=== PATIENT | male | born 1960 ===

== ENCOUNTER 2017-08-08 22:26 | Inpatient (IN) | payer OTHER ==
[~2017-08-08] VITALS: Ht 172.7 cm; Wt 83.6 kg
[2017-08-08 22:58] VITALS: Ht 172.7 cm; Wt 83.6 kg
[2017-08-08] MEDS ORDERED: ATOR10TA65 PO (23:10)
[2017-08-08] MEDS ORDERED: ASPI81TA3 PO (23:10)
[2017-08-08 23:17] VITALS: PULSE 84
[2017-08-08] MEDS ORDERED: INSU100C SQ (23:17)
[2017-08-08] MEDS ORDERED: [UNRECOGNIZED DRUG - CODE] PO (23:17)
[2017-08-08] MEDS ORDERED: PROP20TA4 PO (23:17)
[2017-08-08] MEDS ORDERED: GABA300S PO (23:17)
[2017-08-08] MEDS ORDERED: LEVO300T PO (23:17)
[2017-08-08] MEDS ORDERED: SERT50TA6 PO (23:17)
[2017-08-08] MEDS ORDERED: NPH,100V SQ (23:17)
[2017-08-08] MEDS ORDERED: BENA5TAB2 PO (23:17)
[2017-08-09] VITALS (11 sets, daily range): BP systolic 133–155; BP diastolic 63–91; PULSE 84–95; RESP 16–20
[2017-08-09] MEDS ORDERED: ACCU-CHEK XX SCH
[2017-08-09] MEDS ORDERED: ONDANSETRON 4 MG TAB PO PRN (00:30)
[2017-08-09] MEDS ORDERED: NITROGLYCERIN (SL) 0.4 MG TAB SL PRN (00:30)
[2017-08-09] MEDS ORDERED: DOCUSATE SODIUM 100 MG CAP PO PRN (00:30)
[2017-08-09] MEDS: FAMOTIDINE 20 MG TAB PO SCH ×3 (00:30→21:42)
[2017-08-09] MEDS ORDERED: LORAZEPAM 0.5 MG TAB PO PRN (00:30)
[2017-08-09] MEDS ORDERED: GABAPENTIN 300 MG CAP PO ONE (00:30)
[2017-08-09] MEDS ORDERED: NACL 0.9% 3 ML SYG IV SCH (00:30)
[2017-08-09] MEDS ORDERED: ACETAMINOPHEN 325 MG TAB PO PRN (00:30)
[2017-08-09] MEDS ORDERED: INSULIN ASPART [NOVOLOG] 3 ML PEN SC ONE (03:34)
[2017-08-09] MEDS ORDERED: LEVOTHYROXINE SODIUM 25 MCG PO SCH (07:00)
--- NOTE | 2017-08-09 07:06 | PN ---
Date/Time of Note Date/Time of Note DATE: 08/09/17 TIME: 07:04 Assessment/Plan Lines/Catheters IV Catheter Type (from Nrs): Saline Lock Catalan in Place (from Nrsg): No Assessment/Plan Assessment/Plan full consult to follow 54 year old male admitted to [facility] with NSTEMI. Cath reviewed, he has 3V CAD and will need CABG. I discussed risks, benefits, and alternatives. Risks are but not limited to bleeding, infection, IA, renal and respiratory failure and . He understands and consents. Will schedule for tomorrow. Exam/Review of Systems Vital Signs Vitals Vital Signs Date Time Temp Pulse Resp B/P Pulse Ox O2 Delivery O2 Flow Rate FiO2 08/09/17 05:17 86 08/09/17 00:37 97.7 16 150/83 95 SHIRLEY CLEANING MD Aug 09, 2017 07:06
[2017-08-09] MEDS ORDERED: CEFAZOLIN 2 GM/50 ML (PMX) 50 ML IVPB ONE (07:30)
[2017-08-09] MEDS: LEVOTHYROXINE 25 MCG TAB PO SCH (07:30)
--- NOTE | 2017-08-09 07:47 | RADRPT ---
PROCEDURE: XR Chest. CLINICAL INDICATION: Preop TECHNIQUE: AP Portable chest. COMPARISON: No pertinent prior examinations were submitted for comparison. FINDINGS: The cardiomediastinal silhouette is normal. The aorta is normal. The lung volumes are low with compr essive changes. Left lower lobe reticular densities are visualized. No focal consolidation, pleural effusion or pneumothorax is seen. The osseous structures are intact. IMPRESSION: Low lung volumes. Left lower lobe interstitial infiltrate or atelectasis. Physician Loco Date Time Electronically viewed and signed by Physician Loco on 08/09/2017 07:47 CS/
[2017-08-09 08:22] LABS: BASOPHIL # 0.1 10^3/ul (0.0-0.1); BASOPHILS % 0.7 % (0.0-2.0); EOSINOPHILS # 0.1 10^3/ul (0.0-0.5); HEMATOCRIT 35.6 % (42.0-52.0); HEMOGLOBIN 12.4 g/dl (14.0-18.0); LYMPHOCYTES # 1.3 10^3/ul (0.8-2.9); LYMPHOCYTES % 19.3 % (15.0-51.0); MEAN CORPUSCULAR HEMOGLOBIN 30.2 pg (29.0-33.0); MEAN CORPUSCULAR HGB CONC 34.8 g/dl (32.0-37.0); MEAN CORPUSCULAR VOLUME 86.8 fl (82.0-101.0); MEAN PLATELET VOLUME 10.3 fl (7.4-10.4); MONOCYTE # 0.9 10^3/ul (0.3-0.9); MONOCYTES % 13.9 % (0.0-11.0); NEUTROPHIL # 4.3 10^3/ul (1.6-7.5); PLATELET COUNT 170 10^3/UL (140-415); RED CELL DISTRIBUTION WIDTH 11.6 % (11.5-14.5); WHITE BLOOD COUNT 6.7 10^3/ul (4.8-10.8)
[2017-08-09 08:37] LABS: INR 0.94; PROTIME 12.7 Sec (11.9-14.9)
[2017-08-09 08:38] LABS: PARTIAL THROMBOPLASTIN TIME 28.5 Sec (25.0-35.0)
[2017-08-09 08:59] LABS: ALBUMIN 3.3 g/dl (3.3-4.9); ALBUMIN/GLOBULIN RATIO 1.06; BILIRUBIN,INDIRECT 0.8 mg/dl (0-1.1); BILIRUBIN,TOTAL 0.8 mg/dl (0.2-1.3); CALCIUM 8.6 mg/dl (8.4-10.2); CREATININE 0.83 mg/dl (0.61-1.24); TOTAL PROTEIN 6.4 g/dl (6.1-8.1)
[2017-08-09] MEDS ORDERED: ENOXAPARIN 40 MG/0.4 ML SYG SC SCH (09:00)
[2017-08-09] MEDS: INSULIN ASPART [NOVOLOG] 3 ML PEN SC SCH ×6 (09:26→20:47)
[2017-08-09] MEDS ORDERED: GLUCOSE GEL 15 GRAM TUBE PO PRN ×2 (10:30)
[2017-08-09] MEDS ORDERED: GLUCAGON 1 MG INJ IM PRN (10:30)
[2017-08-09] MEDS ORDERED: DEXTROSE 50% 50 ML SYRINGE IV PRN (10:30)
[2017-08-09] MEDS ORDERED: GLUCOSE GEL 15 GRAM TUBE BUCCAL PRN (10:30)
[2017-08-09] MEDS: SERTRALINE 50 MG TAB PO SCH (11:00)
[2017-08-09] MEDS: PROPRANOLOL 20 MG TAB PO SCH (11:00)
[2017-08-09] MEDS: BENAZEPRIL 5 MG TAB PO SCH (11:00)
[2017-08-09] MEDS: ASPIRIN 81 MG TAB PO SCH (11:01)
[2017-08-09] MEDS ORDERED: INSULIN GLARGINE [LANtus] 3 ML PEN SC ONE (11:30)
--- NOTE | 2017-08-09 11:39 | HP ---
Date/Time of Note Date/Time of Note DATE: 08/09/17 TIME: 11:07 Assessment/Plan VTE Prophylaxis VTE Prophylaxis Intervention: SCD's Lines/Catheters IV Catheter Type (from [facility]): Saline Lock Urinary Cath still in place: No Assessment/Plan Assessment/Plan 57-year-old male with: 1. Coronary artery disease, multivessel, at least 3 with high-grade stenosis, status post NSTEMI at [facility] 2 days ago while in DKA. Patient is currently recovered from the DKA, he is hemodynamically stable, he has been evaluated by cardiothoracic surgery here at [facility] which is the reason why he was transferred from [facility], he will be scheduled for coronary artery bypass surgery in a.m. with Dr. Castellanos EKG and carotid Dopplers are pending. Chest x-ray is fairly stable. For now patient is agreeable with the procedure although he had many questions that all have been answered. Continue current medications, preop orders per Dr. Castellanos 2. Diabetes mellitus, insulin requiring, was previously on NPH and Humalog, status post DKA at [facility]'s 2 days ago, he is now on Lantus along with the pre-meal insulin and sliding scale insulin. Patient has been educated at large regarding his regimen, it may need some adjustments. chemical educator is consulted. Will monitor his blood sugars. He will need an insulin drip postoperatively after bypass surgery tomorrow for blood sugar control postoperatively and we will transition name back to subcutaneous insulin once stable. Check hemoglobin A1c 3. Major depressive disorder: Continue current medications 4. Hypertension: Patient on nichole inhibitors for renal protection in setting of diabetes mellitus primarily and also blood pressure control 5. Hyperlipidemia: Continue statin therapy, check fasting lipid panel 6. Hypothyroidism: Check thyroid function testing, continue levothyroxine. Prophylaxis: Lovenox for DVT prophylaxis, Pepcid for GI prophylaxis Disposition: Blood sugar control, telemetry monitoring, additional preop imaging ordered, plan for CABG tomorrow with Dr. Castellanos. HPI/ROS Admit Date/Time Admit Date/Time Aug 08, 2017 at 22:26 Hx of Present Illness Chief complaint: Transfer from [facility] for need for CABG History of presenting illness: This is a 57-year-old male with known major depressive disorder, diabetes mellitus insulin requiring, hyperlipidemia, hypertension who presented at [facility] on 08/06 in DKA, he was admitted to the intensive care unit there, he was treated for DKA, he was found to have also a NSTEMI, he did have angiogram within 24 hours of admission and was found to have multi-vessel disease, per report from [facility] hospitalist patient was found to have at least 90% occlusion of RCA, 80% of LAD, 80% occlusion of LAD, 90% occlusion of left circumflex and 10% occlusion of left main. The recommendation at [facility] was for coronary artery bypass surgery, patient was transferred to [facility] so that he is within insurance network and for continuity of care. Patient upon arrival here this morning was very upset regarding his insulin regimen apparently, he decided to leave AGAINST MEDICAL ADVICE and was actually about to walk out of the hospital but was caught by the nurse and myself, I talked to him at length and he agrees to stay, he was already seen by Dr. Castellanos from cardiothoracic surgery this morning and he is scheduling him for coronary artery bypass surgery tomorrow. After long discussion with the patient he is agreeable to stay and have the surgery done tomorrow. His insulin regimen has been adjusted per [facility] protocol. He agrees with going on Lantus along with pre-meal insulin and sliding scale insulin adjusted to his weight. We will have a music educator talk to him. He understands that post coronary artery bypass surgery most likely he is going to require insulin drip while recovering in the intensive care unit and will be transitioned back to subcutaneous insulin afterwards and he is agreeable. Patient denies any chest pain, nausea, vomiting, dizziness, shortness of breath , lower extremity edema. Currently. He feels well. 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 Alcohol Use: none Smoking Status: Former smoker (Patient was smoking for approximately 35 years, 1 pack a day and quit 2 years ago) Drug Use: none Exam/Review of Systems Vital Signs Vitals Vital Signs Date Time Temp Pulse Resp B/P Pulse Ox O2 Delivery O2 Flow Rate FiO2 08/09/17 08:00 85 08/09/17 08:00 97.8 19 133/63 100 Exam Constitutional: alert, oriented, well developed Respiratory: clear to auscultation, normal air movement Cardiovascular: nl pulses, regular rate and rhythm Gastrointestinal: non-tender, soft Musculoskeletal: nl extremities to inspection, nl gait and stance Extremities: normal pulses Neurological: LAB ASSOCIATE II-XII intact, nl mental status, nl speech, nl strength Labs Result Diagram: 08/09/17 0756 08/09/17 0756 Medications Medications Current Medications Influenza Virus Vaccine (Fluzone) 0.5 ml ONCE ONCE IM* ; Start 08/11/17 at 09: 00; Stop 08/11/17 at 09:01 Lorazepam (Ativan) 0.5 mg Q8H PRN PO ANXIETY; Start 08/09/17 at 00:30 Ondansetron HCl (Zofran Tab) 4 mg Q6H PRN PO NAUSEA AND/OR VOMITING; Start at 00:30 Nitroglycerin (Nitroglycerin (Sl Tab) 0.4 Mg) 1 tab Q5M PRN SL CHEST PAIN; Start 08/09/17 at 00:30 Acetaminophen (Tylenol Tab) 650 mg Q6H PRN PO PAIN LEVEL 1-3 OR FEVER; Start 08/09/17 at 00:30 Acetaminophen/ Hydrocodone Bitart ([place] (5/325)) 1 tab Q6H PRN PO PAIN LEVEL 4 -6; Start 08/09/17 at 00:30 Docusate Sodium (Colace) 100 mg Q12H PRN PO CONSTIPATION; Start 08/09/17 at 00 :30 Famotidine (Pepcid) 20 mg Q12 PO ; Start 08/09/17 at 00:30 Enoxaparin Sodium (Lovenox) 40 mg DAILY SC ; Start 08/09/17 at 09:00; Status Future Hold Aspirin (Aspirin) 81 mg DAILY PO ; Start 08/09/17 at 09:00 Atorvastatin Calcium (Lipitor) 20 mg QHS PO ; Start 08/09/17 at 21:00 Benazepril HCl (Lotensin) 2.5 mg DAILY PO ; Start 08/09/17 at 09:00 Propranolol HCl (Inderal) 20 mg DAILY PO ; Start 08/09/17 at 09:00 Sertraline HCl 50 mg 50 mg DAILY PO ; Start 08/09/17 at 09:00 Cefazolin Sodium/ Dextrose (Ancef 2 Gm/50 ml (Pmx)) 50 ml @ 100 mls/hr PRE-OP ONCE IVPB ; Start 08/10/17 at 07:00; Stop 08/10/17 at 07:29 Levothyroxine Sodium (Synthroid) 25 mcg DAILY@06 PO ; Start 08/09/17 at 07:30 Diagnostic Test (Pha) 1 ea 1 ea 02 XX ; Start 08/10/17 at 02:00 Insulin Human Regular 100 unit/ Sodium Chloride 100 ml @ 0 mls/hr Q0M ONCE IVPB ; Start 08/10/17 at 07:00; Stop 08/10/17 at 07:01 Norepinephrine 250 ml @ 0 mls/hr ONCE ONCE IV ; Start 08/10/17 at 07:00; Stop 08/10/17 at 07:01 Epinephrine 4 mg/ Dextrose 250 ml @ 0 mls/hr Q0M ONCE IV ; Start 08/10/17 at 07 :00; Stop 08/10/17 at 07:01 Phenylephrine HCl (Elliot-Syneph) 250 ml @ 0 mls/hr ONCE ONCE IV ; Start at 07:00; Stop 08/10/17 at 07:01 Aspirin 600 mg 600 mg ONCE ONCE PA ; Start 08/10/17 at 07:00; Stop 08/10/17 at 07:01 Heparin Sodium (Porcine) 97774 unit/Milrinone Lactate 10 mg/ Sodium Chloride 1, 011 ml @ 0 mls/hr ONCE ONCE SC ; Start 08/10/17 at 07:00; Stop 08/10/17 at 07:01 Milrinone Lactate/ Sodium Chloride (Primacor/NS) 52 ml @ 0 mls/hr ONCE ONCE IV ; Start 08/10/17 at 07:00; Stop 08/10/17 at 07:01 Insulin Glargine (Lantus) 25 unit DAILY@08 SC ; Start 08/10/17 at 08:00 Miscellaneous Information 1 ea NOTE XX ; Start 08/09/17 at 10:30 Glucose (Glutose) 15 gm Q15M PRN PO DECREASED GLUCOSE; Start 08/09/17 at 10:30 Glucose (Glutose) 22.5 gm Q15M PRN PO DECREASED GLUCOSE; Start 08/09/17 at 10: 30 Dextrose (D50w Syringe) 25 ml Q15M PRN IV DECREASED GLUCOSE; Start 08/09/17 at 10:30 Dextrose (D50w Syringe) 50 ml Q15M PRN IV DECREASED GLUCOSE; Start 08/09/17 at 10:30 Glucagon (Glucagen) 1 mg Q15M PRN IM DECREASED GLUCOSE; Start 08/09/17 at 10: 30 Glucose (Glutose) 15 gm Q15M PRN BUCCAL DECREASED GLUCOSE; Start 08/09/17 at 10:30 Procedures Procedures PROCEDURE: XR Chest. CLINICAL INDICATION: Preop TECHNIQUE: AP Portable chest. COMPARISON: No pertinent prior examinations were submitted for comparison. FINDINGS: The cardiomediastinal silhouette is normal. The aorta is normal. The lung volumes are low with compressive changes. Left lower lobe reticular densities are visualized. No focal consolidation, pleural effusion or pneumothorax is seen. The osseous structures are intact. IMPRESSION: Low lung volumes. Left lower lobe interstitial infiltrate or atelectasis. Carotid Doppler ultrasound pending, Preop EKG pending, patient already known to have recent and STEMI and coronary artery disease and actually going to bypass surgery tomorrow. ROBERT MULLEN Aug 09, 2017 11:17
[2017-08-09 11:48] LABS: CHOL/HDL RATIO 3.3 RATIO
[2017-08-09] MEDS ORDERED: INSULIN ASPART [NOVOLOG] 3 ML PEN SC SCH (11:50)
--- NOTE | 2017-08-09 14:22 | RADRPT ---
PROCEDURE: US Carotids. CLINICAL INDICATION: Syncope. Preoperative exam for CABG TECHNIQUE: Multiple sonographic of the carotid bifurcation region and vertebral arteries were obta ined utilizing yuan scale, duplex and color-flow imaging. The images were reviewed on a PACS worksta tion. COMPARISON: No prior studies are available for comparison. FINDINGS: Evaluation of the right carotid bifurcation region reveals mild to moderate calcific atherosclerotic disease. Evaluation of the left carotid bifurcation region reveals mild to moderate calcific atherosclerotic disease. There is antegrade flow within the vertebral arteries bilaterally. RIGHT CAROTID MEASUREMENTS: Common Carotid Zmphao64.5 (cm/sec) Internal Carotid Artery - [id number] (cm/sec) Internal Carotid Artery - mid77.9 (cm/sec) Internal Carotid Artery - vptsum78.5 (cm/sec) Internal Carotid/Common Carotid0.9 LEFT CAROTID MEASUREMENTS: Common Carotid Zsskpd03.1 (cm/sec) Internal Carotid Artery - lwbsewvy55.9 (cm/sec) Internal Carotid Artery - mid50 (cm/sec) Internal Carotid Artery - hrhfuf88.4 (cm/sec) Internal Carotid/Common Carotid0.8 IMPRESSION: 1. No evidence for hemodynamically significant carotid artery stenosis by velocity criteria. 2. Normal antegrade flow in the vertebral arteries bilaterally. RPTAT: HPNM Physician Margaux Date Time Electronically viewed and signed by Physician Margaux on 08/09/2017 14:22 /
[2017-08-09] MEDS ORDERED: INSULIN GLARGINE [LANtus] 3 ML PEN SC SCH (20:00)
[2017-08-09] MEDS: ATORVASTATIN 10 MG TAB PO SCH (21:20)
[2017-08-10] VITALS (44 sets, daily range): BP systolic 83–152; BP diastolic 21–90; PULSE 77–112; RESP 9–21; TEMP 98.3–99.6
[2017-08-10] MEDS: ACCU-CHEK XX SCH (02:00)
[2017-08-10] MEDS: LEVOTHYROXINE 25 MCG TAB PO SCH (05:26)
[2017-08-10] MEDS ORDERED: GELATIN SIZE 100 SPONGE ONE (06:14)
[2017-08-10] MEDS ORDERED: THROMBIN 5000 UNIT VIAL ONE (06:14)
[2017-08-10] MEDS ORDERED: VANCOMYCIN 1 GM INJ ONE (06:14)
[2017-08-10] MEDS ORDERED: PAPAVERINE 60 MG INJ ONE (06:14)
[2017-08-10] MEDS ORDERED: HEPARIN 1000 UNITS/ML 10 ML INJ ONE ×5 (06:15→12:49)
[2017-08-10 06:43] LABS: BASOPHIL # 0.1 10^3/ul (0.0-0.1); BASOPHILS % 0.9 % (0.0-2.0); EOSINOPHILS # 0.1 10^3/ul (0.0-0.5); EOSINOPHILS % 1.4 % (0.0-7.0); HEMOGLOBIN 12.9 g/dl (14.0-18.0); LYMPHOCYTES # 1.7 10^3/ul (0.8-2.9); LYMPHOCYTES % 24.8 % (15.0-51.0); MEAN CORPUSCULAR HEMOGLOBIN 30.4 pg (29.0-33.0); MEAN CORPUSCULAR HGB CONC 34.9 g/dl (32.0-37.0); MEAN CORPUSCULAR VOLUME 87.1 fl (82.0-101.0); MEAN PLATELET VOLUME 10.3 fl (7.4-10.4); NEUTROPHILS % 57.6 % (39.0-77.0); PLATELET COUNT 181 10^3/UL (140-415); RED BLOOD COUNT 4.25 10^6/ul (4.70-6.10); RED CELL DISTRIBUTION WIDTH 11.6 % (11.5-14.5); WHITE BLOOD COUNT 6.9 10^3/ul (4.8-10.8)
[2017-08-10] MEDS ORDERED: ASPIRIN 600 MG SUPP PR ONE (07:00)
[2017-08-10] MEDS ORDERED: HEPARIN (10000 UNITS/ML) 10,000 UNIT, MILRINONE LACTATE 10 MG in SOD CHLORIDE 0.9% 1,00... SC ONE (07:00)
[2017-08-10] MEDS ORDERED: CEFAZOLIN 2 GM/50 ML (PMX) 50 ML IVPB ONE (07:00)
[2017-08-10] MEDS ORDERED: MILRINONE LACTATE 2 MG in SOD CHLORIDE 0.9% 50 ML IV ONE (07:00)
[2017-08-10] MEDS ORDERED: NITROGLYCERIN 50 MG/D5W 250 ML BTL ONE (07:00)
[2017-08-10] MEDS ORDERED: PHENYLephrine 20MG IN 250 ML 250 ML IV ONE (07:00)
[2017-08-10] MEDS ORDERED: INSULIN HUMAN REGULAR 100 UNIT in SOD CHLORIDE 0.9% 99 ML IVPB ONE (07:00)
[2017-08-10] MEDS ORDERED: NORepinephrine 8MG/250 ML (PMX 250 ML IV ONE (07:00)
[2017-08-10] MEDS ORDERED: EPINEPHrine 4 MG in DEXTROSE 5% 246 ML IV ONE (07:00)
[2017-08-10 07:03] LABS: MAGNESIUM 1.7 mg/dl (1.7-2.5); PHOSPHORUS 4.1 mg/dl (2.5-4.9)
[2017-08-10 07:20] LABS: ALBUMIN 3.6 g/dl (3.3-4.9); ALBUMIN/GLOBULIN RATIO 1.05; BILIRUBIN,INDIRECT 0.7 mg/dl (0-1.1); BILIRUBIN,TOTAL 0.7 mg/dl (0.2-1.3); CALCIUM 9.1 mg/dl (8.4-10.2); CREATININE 0.94 mg/dl (0.61-1.24); POTASSIUM 4.2 mmol/L (3.5-5.1)
[2017-08-10] MEDS: INSULIN ASPART [NOVOLOG] 3 ML PEN SC SCH ×6 (07:55→20:54)
[2017-08-10] MEDS: BENAZEPRIL 5 MG TAB PO SCH (09:00)
[2017-08-10] MEDS: SERTRALINE 50 MG TAB PO SCH (09:00)
[2017-08-10] MEDS: FAMOTIDINE 20 MG TAB PO SCH (09:00)
[2017-08-10] MEDS: PROPRANOLOL 20 MG TAB PO SCH (09:00)
[2017-08-10] MEDS: ASPIRIN 81 MG TAB PO SCH (09:00)
[2017-08-10] MEDS: INSULIN GLARGINE [LANtus] 3 ML PEN SC SCH (09:06)
--- NOTE | 2017-08-10 09:59 | HPN ---
Date/Time of Note Date/Time of Note DATE: 08/10/17 TIME: 09:59 Interval H&P Admission Note Pt. seen H&P reviewed: No system changes SHIRLEY CLEANING MD Aug 10, 2017 09:59
--- NOTE | 2017-08-10 10:11 | CONS ---
Date/Time of Note Date/Time of Note DATE: 08/10/17 TIME: 10:07 Assessment/Plan Assessment/Plan Additional Assessment/Plan 54 year old male with 3 vessel CAD. I explained the benefits, risks and alternatives of surgery. The risks are but not limited to bleeding, infection, stroke, [place], renal and respiratory failure and . He understands and consents. Will plan on CABG soon Consultation Date/Type/Reason Admit Date/Time Aug 08, 2017 at 22:26 Date of Consultation: Aug 09, 2017 Reason for Consultation evaluate for CABG Hx of Present Illness 54 year old male admitted to [facility] with NSTEMI and cath showed severe 3V CAD. He was transferred here for CABG. Constitutional: No chills, No diaphoresis, No disoriented, No febrile, No improved, No no complaints, No other, No poor po, No requiring IVF, No requiring O2 Eyes: No discharge, No no complaints, No other, No pain, No redness, No visual change ENT: No bleeding, No congestion, No discharge, No dysphagia, No no complaints, No other, No pain, No sore throat Respiratory: No cough, No no complaints, No other, No pain, No pleuritic pain, No shortness of breath, No sputum, No wheezing Cardiovascular: chest pain Gastrointestinal: No blood, No constipation, No decreased appetite, No diarrhea , No flatus, No nausea, No no complaints, No other, No pain, No passing stool, No vomiting Genitourinary: No bleeding, No discharge, No dysuria, No flank pain, No hematuria, No no complaints, No other Musculoskeletal: No back pain, No bone/joint pain, No neck pain, No no complaints, No other, No restricted range of motion, No swelling Skin: No bruising, No erythema, No laceration, No no complaints, No other, No pruritis, No rash, No skin lesions Neurologic: No confusion, No dizziness, No focal-weakness, No headache, No no complaints, No other, No seizure, No syncope Endocrine: No dry skin, No no complaints, No other, No polydypsia, No polyuria , No temp intolerance Lymphatic: No adenopathy, No lymphadema, No no complaints, No other, No tender nodes Psychological: No anxiety, No confusion, No depression, No nl mood/affect, No no complaints, No other, No suicidal Immunologic: No immunodeficiency, No no complaints, No other, No pruritis, No rhinitis, No urticaria Past Medical History Medical History: angina, coronary artery disease, diabetes, high cholesterol Past Surgical History Past Surgical Hx: no surgical history Family History Significant Family History: no pertinent family hx Social History Alcohol Use: none Smoking Status: Former smoker (Patient was smoking for approximately 35 years, 1 pack a day and quit 2 years ago) Drug Use: none Exam/Review of Systems Vital Signs Vitals Vital Signs Date Time Temp Pulse Resp B/P Pulse Ox O2 Delivery O2 Flow Rate FiO2 08/10/17 08:10 84 08/10/17 07:56 98.8 16 134/72 99 Intake and Output 08/09/17 08/09/17 08/10/17 15:00 23:00 07:00 Intake Total 800 ml Balance 800 ml Exam Constitutional: No alert, No distress, No frail, No non-verbal, No obese, No oriented, No other, No well developed Psych: No anxiety, No confusion, No depression, No nl mood/affect, No no complaints, No other, No suicidal Head: No atraumatic, No hematomas, No lacerations, No normocephalic, No other Eyes: No EOMI, No PERRL, No fundi, disc, No icteric, No nl conjunctiva, No nl lids, No nl sclera, No other ENMT: No intubated, No mucosa pink and moist, No nl external ears & nose, No nl lips & teeth, No nl nasal mucosa & septum, No other, No tympanic membranes Neck: No bruits, No jvd, No masses, No non-tender, No nuchal rigidity, No other , No supple, No thyromegaly Respiratory: No clear to auscultation, No congested cough, No crackles/rales, No diminished breath sounds, No intercostal retraction, No labored breathing, No normal air movement, No other, No respirations, No tactile fremitus, No wheezing Cardiovascular: No S3, No S4, No bruits, No diastolic murmur, No edema, No gallop, No irregular rhythm, No jugular venous distention (JVD), No murmurs/ extra sounds, No nl pulses, No other, No regular rate and rhythm, No rub, No systolic murmur Gastrointestinal: No ascites, No bowel sounds, No distended, No firm, No hepatomegaly, No mass, No nl liver, spleen, No non-tender, No other, No rebound or guarding, No soft, No splenomegaly, No surgical scars, No tender Genitourinary - Male: No CVA tenderness, No discharge, No nl penis, No nl scrotum, No other Musculoskeletal: No joint tenderness, No muscle tone, No muscle weakness, No nl extremities to inspection, No nl gait and stance, No other, No range of motion, No spine non-tender, No swelling Extremities: No calf tenderness, No clubbing, No cyanosis, No edema, No normal pulses, No other, No palpable cord, No pitting pedal edema, No tenderness Neurological: No SOLUTION MANAGER II-XII intact, No DTR's symmetric, No confused, No focal weakness, No lethargic, No nl mental status, No nl speech, No nl strength, No numbness, No other, No reflexes, No unresponsive Skin: No diaphoresis, No ecchymosis, No laceration, No nl turgor, No other, No puncture, No rash or lesions Lymph: No enlarged, No nl lymph nodes, No nontender, No other Results Result Diagram: 08/10/17 0623 08/10/17 0623 Results 24 hrs Laboratory Tests Test 08/09/17 12:36 08/09/17 13:12 08/09/17 18:00 08/09/17 18:45 Bedside Glucose 260 H 232 H 66 L 111 Test 08/09/17 20:47 08/10/17 04:34 08/10/17 06:23 08/10/17 08:05 Bedside Glucose 124 120 195 White Blood Count 6.9 Red Blood Count 4.25 L Hemoglobin 12.9 L Hematocrit 37.0 L Mean Corpuscular Volume 87.1 Mean Corpuscular Hemoglobin 30.4 Mean Corpuscular Hemoglobin Concent 34.9 Red Cell Distribution Width 11.6 Platelet Count 181 Mean Platelet Volume 10.3 Neutrophils % 57.6 Lymphocytes % 24.8 Monocytes % 15.0 H Eosinophils % 1.4 Basophils % 0.9 Nucleated Red Blood Cells % 0.0 Neutrophils # 4.0 Lymphocytes # 1.7 Monocytes # 1.0 H Eosinophils # 0.1 Basophils # 0.1 Nucleated Red Blood Cells # 0.0 Sodium Level 141 Potassium Level 4.2 Chloride Level 103 Carbon Dioxide Level 28 Anion Gap 14 Blood Urea Nitrogen 18 Creatinine 0.94 Glucose Level 154 # Calcium Level 9.1 Phosphorus Level 4.1 Magnesium Level 1.7 Total Bilirubin 0.7 Direct Bilirubin 0.00 Indirect Bilirubin 0.7 Aspartate Amino Transf (AST/SGOT) 48 #H Alanine Aminotransferase (ALT/SGPT) 42 Alkaline Phosphatase 63 Total Protein 7.0 Albumin 3.6 Globulin 3.40 H Albumin/Globulin Ratio 1.05 Test 08/10/17 08:27 08/10/17 09:40 Bedside Glucose 185 217 Medications Medications Current Medications Influenza Virus Vaccine (Fluzone) 0.5 ml ONCE ONCE IM* ; Start 08/11/17 at 09: 00; Stop 08/11/17 at 09:01 Lorazepam (Ativan) 0.5 mg Q8H PRN PO ANXIETY; Start 08/09/17 at 00:30 Ondansetron HCl (Zofran Tab) 4 mg Q6H PRN PO NAUSEA AND/OR VOMITING; Start at 00:30 Nitroglycerin (Nitroglycerin (Sl Tab) 0.4 Mg) 1 tab Q5M PRN SL CHEST PAIN; Start 08/09/17 at 00:30 Acetaminophen (Tylenol Tab) 650 mg Q6H PRN PO PAIN LEVEL 1-3 OR FEVER; Start 08/09/17 at 00:30 Acetaminophen/ Hydrocodone Bitart ([place] (5/325)) 1 tab Q6H PRN PO PAIN LEVEL 4 -6; Start 08/09/17 at 00:30 Docusate Sodium (Colace) 100 mg Q12H PRN PO CONSTIPATION; Start 08/09/17 at 00 :30 Famotidine (Pepcid) 20 mg Q12 PO Last administered on 08/09/17 21:42; Admin Dose 20 MG; Start 08/09/17 at 00:30 Enoxaparin Sodium (Lovenox) 40 mg DAILY SC Last administered on 08/09/17 11: 26; Admin Dose 40 MG; Start 08/09/17 at 09:00; Status Future Hold Aspirin (Aspirin) 81 mg DAILY PO Last administered on 08/09/17 11:01; Admin Dose 81 MG; Start 08/09/17 at 09:00 Atorvastatin Calcium (Lipitor) 20 mg QHS PO Last administered on 08/09/17 21: 20; Admin Dose 20 MG; Start 08/09/17 at 21:00 Benazepril HCl (Lotensin) 2.5 mg DAILY PO Last administered on 08/09/17 11:00 ; Admin Dose 2.5 MG; Start 08/09/17 at 09:00 Propranolol HCl (Inderal) 20 mg DAILY PO Last administered on 08/09/17 11:00 ; Admin Dose 20 MG; Start 08/09/17 at 09:00 Sertraline HCl (Zoloft) 50 mg DAILY PO Last administered on 08/09/17 11:00; Admin Dose 50 MG; Start 08/09/17 at 09:00 Levothyroxine Sodium (Synthroid) 25 mcg DAILY@06 PO ; Start 08/09/17 at 07:30 Diagnostic Test (Pha) (Accu-Chek) 1 ea 02 XX ; Start 08/10/17 at 02:00 Insulin Glargine (Lantus) 25 unit DAILY@08 SC ; Start 08/10/17 at 08:00 Miscellaneous Information 1 ea NOTE XX ; Start 08/09/17 at 10:30 Glucose (Glutose) 15 gm Q15M PRN PO DECREASED GLUCOSE; Start 08/09/17 at 10:30 Glucose (Glutose) 22.5 gm Q15M PRN PO DECREASED GLUCOSE; Start 08/09/17 at 10: 30 Dextrose (D50w Syringe) 25 ml Q15M PRN IV DECREASED GLUCOSE; Start 08/09/17 at 10:30 Dextrose (D50w Syringe) 50 ml Q15M PRN IV DECREASED GLUCOSE; Start 08/09/17 at 10:30 Glucagon (Glucagen) 1 mg Q15M PRN IM DECREASED GLUCOSE; Start 08/09/17 at 10: 30 Glucose (Glutose) 15 gm Q15M PRN BUCCAL DECREASED GLUCOSE; Start 08/09/17 at 10:30 SHIRLEY CLEANING MD Aug 10, 2017 10:11
[2017-08-10] MEDS ORDERED: PAPAVERINE 60 MG INJ IRR ONE (10:35)
[2017-08-10] MEDS ORDERED: VANCOMYCIN 500MG INJ IMPLANTED ONE (10:35)
[2017-08-10] MEDS ORDERED: HEPARIN 1000 UNITS/ML 10 ML INJ IRR ONE (10:35)
[2017-08-10] MEDS ORDERED: MIDAZOLAM 5 ML ONE ×2 (10:39→12:02)
[2017-08-10] MEDS ORDERED: PHENYLephrine 10 MG INJ ONE (10:40)
[2017-08-10] MEDS ORDERED: NA BICARBONATE 8.4% 50 ML SYG ONE (10:40)
[2017-08-10] MEDS ORDERED: LIDOCAINE 100 MG SYRINGE ONE (10:41)
[2017-08-10] MEDS ORDERED: MAGNESIUM SULFATE (MG) 50% 10 ML INJ ONE (10:41)
[2017-08-10] MEDS ORDERED: POTASSIUM CHLORIDE 40 MEQ INJ ONE (10:41)
[2017-08-10] MEDS ORDERED: MANNITOL 20% 250 ML IV ONE (10:42)
[2017-08-10] MEDS ORDERED: PHENYLephrine (100 MCG/ML) 5ML SYG ONE (10:42)
[2017-08-10] MEDS ORDERED: ALBUMIN HUMAN 25% 300 ML ONE (10:42)
[2017-08-10] MEDS ORDERED: AMINOCAPROIC ACID 5 GM INJ ONE ×2 (11:37→13:14)
[2017-08-10] MEDS ORDERED: CEFAZOLIN 1 GM INJ ONE ×2 (11:37→13:14)
[2017-08-10] MEDS ORDERED: CA CHLORIDE 10% 10 ML SYRINGE ONE (13:14)
[2017-08-10] MEDS ORDERED: PROTAMINE 250 MG INJ ONE (13:18)
--- NOTE | 2017-08-10 14:03 | SIPON ---
Date/Time of Note Date/Time of Note DATE: 08/10/17 TIME: 14:00 Operative Report Preoperative Diagnosis NSTEMI, 3V CAD Postoperative Diagnosis SAME Operation/Procedure Performed CABGX3 OSORIO TO LAD, SVG TO DIAG, SVG TO DISTAL RCA Surgeon see signature line financial planning assistant EDUARDO MCWILLIAMS MD Second assist: MARYSOL MUIR Anesthesia: general Estimated blood loss: other Transfusion Required none Specimen NONE Grafts/Implants none Complications none SHIRLEY CLEANING MD Aug 10, 2017 14:03
[2017-08-10] MEDS ORDERED: ETOMIDATE 20 MG INJ ONE (14:10)
[2017-08-10] MEDS ORDERED: LIDOCAINE 2% (SDV) 5 ML INJ ONE (14:10)
[2017-08-10] MEDS ORDERED: ROCURONIUM 50 MG INJ ONE ×3 (14:10)
--- NOTE | 2017-08-10 14:23 | RADRPT ---
PROCEDURE: XR Chest. CLINICAL INDICATION: Postop CABG TECHNIQUE: Single frontal chest x-ray. COMPARISON: None. FINDINGS: Note that there is anomalous labeling in which the left label is overlying the right shoulder. An endotracheal tube is visualized which is about 5.4 cm above the altagracia. Median sternotomy wires a re also present. There is a right internal jugular Arma-Dallas catheter with the tip in the region of the left pulmonary outflow tract. The mediastinal drain is also visualized. The lungs are adequately expanded with perihilar predominant interstitial thickening with indistinct ness of the pulmonary vasculature in keeping with moderate edema, more prominent on the right. There is right basilar atelectasis/scarring. The heart is mildly prominent. Mediastinal contours are unre markable. Bones are unremarkable. No acute fractures are present. RPTAT: QQ IMPRESSION: 1. Tubes and lines as described above. No anomalous radiopaque foreign bodies within the chest. 2. Mild to moderate pulmonary edema with cardiomegaly. 3. Right basilar atelectasis/scarring. Results were discussed with the nurse taking care of the patient in the OR at extension [id number] on 07/26 2:21:43 PM. .Nicole Beasley MD, MD Date Time Electronically viewed and signed by .Nicole Beasley MD, on 08/10/2017 14:23 .T/
[2017-08-10] MEDS ORDERED: DEXTROSE 50% 50 ML SYRINGE IV PRN ×2 (14:30)
[2017-08-10] MEDS ORDERED: ACCU-CHEK XX SCH (14:30)
[2017-08-10] MEDS ORDERED: OXYCODONE/ACETAMINOPHEN (5/325) TAB PO PRN (14:30)
[2017-08-10] MEDS ORDERED: ONDANSETRON 4 MG INJ IV PRN (14:30)
[2017-08-10] MEDS ORDERED: NITROGLYCERIN 50 MG/D5W (PMX) 250 ML IV SCH ×2 (14:30→15:00)
[2017-08-10] MEDS ORDERED: ACETAMINOPHEN 325 MG TAB PO PRN (14:30)
[2017-08-10] MEDS ORDERED: DOPamine-D5W 1.6 MG/ML 250 ML IV SCH (14:30)
[2017-08-10] MEDS ORDERED: KETOROLAC 30 MG INJ IV PRN (14:30)
[2017-08-10] MEDS ORDERED: HYDROmorphONE 0.5 MG/0.5 ML SYG IV PRN (14:30)
[2017-08-10] MEDS ORDERED: PHENYLephrine 20MG IN 250 ML 250 ML IV SCH (15:00)
[2017-08-10] MEDS ORDERED: POTASSIUM CHLORIDE 40 MEQ, CALCIUM CHLORIDE 10% 1 GM in DEXTROSE 5%-0.225% NACL 1,000 ML IV SCH (15:00)
[2017-08-10] MEDS: INSULIN HUMAN REGULAR 100 UNIT in SOD CHLORIDE 0.9% 99 ML IV SCH ×2 (15:01→22:23)
[2017-08-10 15:15] LABS: ABNORMAL IP MESSAGE 1; MEAN CORPUSCULAR HEMOGLOBIN 30.2 pg (29.0-33.0); MEAN CORPUSCULAR HGB CONC 34.5 g/dl (32.0-37.0); MEAN CORPUSCULAR VOLUME 87.6 fl (82.0-101.0); MEAN PLATELET VOLUME 10.2 fl (7.4-10.4); PLATELET COUNT 97 10^3/UL (140-415); POSITIVE DIFF @See below; RED BLOOD COUNT 3.31 10^6/ul (4.70-6.10); RED CELL DISTRIBUTION WIDTH 11.5 % (11.5-14.5); WHITE BLOOD COUNT 8.4 10^3/ul (4.8-10.8)
[2017-08-10 15:28] LABS: INR 1.25; PROTIME 15.9 Sec (11.9-14.9); PT RATIO 1.2
[2017-08-10 15:29] LABS: PARTIAL THROMBOPLASTIN TIME 31.8 Sec (25.0-35.0)
[2017-08-10] MEDS: HYDROmorphONE 0.5 MG/0.5 ML SYG IV PRN ×3 (15:29→21:08)
[2017-08-10 15:31] LABS: CALCIUM 8.3 mg/dl (8.4-10.2); CREATININE 0.91 mg/dl (0.61-1.24); POTASSIUM 3.4 mmol/L (3.5-5.1)
[2017-08-10] MEDS ORDERED: PROPOFOL 100 ML ONE (15:34)
[2017-08-10 16:00] LABS: AADO2 Arterial 228.9 mmHg (7.0-24.0); Arterial Base Excess -3.8 mmol/L (-3.0-3); Arterial COHb 0.3 % (0.0-3.0); Arterial Fraction of Oxyhgb 97.9 % (93.0-99.0); Arterial HCO3 22.3 mmol/L (22.0-26.0); Arterial MetHb 0 % (0.0-1.5); Arterial Total Hemglobin 11.9 g/dl (12.0-18.0); MODE VENT - AC
[2017-08-10 16:05] LABS: EOSINOPHILS % (M) 2 % (0-7); PLATELET ESTIMATE DECREASED
[2017-08-10] MEDS: PROPOFOL 100 ML IV SCH (16:12)
[2017-08-10] MEDS: DEXTROSE 50% 50 ML SYRINGE IV PRN ×2 (16:47→18:04)
[2017-08-10] MEDS: POTASSIUM CHLORIDE 50 ML IVPB PRN ×3 (17:02→19:20)
[2017-08-10] MEDS: CEFAZOLIN 1 GM/50 ML (PMX) 50 ML IVPB SCH ×2 (17:47→22:08)
--- NOTE | 2017-08-10 18:44 | OPR ---
DATE OF OPERATION: 08/10/2017 PREOPERATIVE DIAGNOSIS: [id number] myocardial infarction, 3-vessel coronary artery disease. POSTOPERATIVE DIAGNOSIS: Nuo-[id number] myocardial infarction, 3-vessel coronary artery disease. PROCEDURE: CABG x3, OSORIO to LAD, SVG to distal right coronary artery, SVG to diagonal artery. SURGEON: Shirley Castellanos MD HOUSE DETECTIVE: Cameron Mcwilliams MD SECOND RETAIL TEAM MEMBER: Janelle CACERES ANESTHESIOLOGIST: Dr. John. ANESTHESIA: General endotracheal. COMPLICATIONS: None. FINDINGS: LV function was good pre- and post-revascularization. His LAD was a 2 mm vessel and had a flow of 26 mL per minute. His RCA was a 2.5 mm vessel and had a flow of 132 mL per minute. His d iagonal artery was a 1.75 mm vessel and had a flow of 60 mL per minute. Cardiopulmonary bypass time was 55 minutes. Crossclamp time was 35 minutes. No atheromas or plaques were noted in the ascendi ng aorta. PROCEDURE PERFORMED: CABG x3, OSORIO to LAD, SVG to distal right coronary artery, SVG to diagonal art kris and endoscopic vein harvesting. INDICATION: The patient is a 57-year-old gentleman who was admitted to [facility] with a non-STEMI. He was cath'd there and was found to have 3-vessel coronary artery disease. He was tra nsferred for insurance reasons to [facility], where he was referred for CABG. The benefits, risks, and alternatives were explained to the patient who understood and consented. DESCRIPTION OF PROCEDURE: Patient was brought to the operating room, was placed in supine position. He was induced and underwent general endotracheal intubation without complications. He was preppe d and draped in usual sterile fashion. Median sternotomy was made and simultaneous endoscopic vein harvesting of the greater saphenous vein from the right lower extremity. Heparin was given. OSORIO w as taken down using clips and cautery. Pericardial well was established. Pursestring was placed in the ascending aorta, followed by the right atrium. The ascending aorta was cannulated, followed by 2-stage venous cannula in the right atrium. We placed an ascending aortic vent. Once all our line s were in place and the ACT was adequate, we commenced cardiopulmonary bypass. We arrested the hear t using antegrade cardioplegia and topical ice. Once the heart was arrested, we identified the dist al RCA. We made an arteriotomy, extended it with Villafana scissors, anastomosed our vein graft using 7 -0 Prolene in a running fashion in end-to-side manner. The vein graft cut to length and more cardio plegia was given. We then identified the diagonal artery, made arteriotomy, extended with Villafana sci ssors, anastomosed our vein graft using 7-0 Prolene in a running fashion in end-to-side manner. Mor e cardioplegia was given. We then identified the mid LAD, made arteriotomy, extended with Villafana sci ssors, anastomosed our OSORIO using 7-0 Prolene in a running fashion in end-to-side manner. Warm bloo d was given. Crossclamp was removed. He was cardioverted to normal sinus rhythm. A ventricular pa cing wire was placed. We then placed a partial clamp on the ascending aorta, made 2 aortotomies, an astomosed our right vein graft to the distal aortotomy using 5-0 Prolene in a running fashion in end -to-side manner. The same was done for the other vein graft. Partial vein was removed; vein grafts were deaired. Distal hemostasis was achieved. We began ventilating and then weaned him off cardio pulmonary bypass without difficulty. Once he was off bypass, we gave protamine. We de-lined the pa tient. We placed the anterior mediastinal tube and then began our closure. We closed the chest usi ng interrupted cables followed by closure of the fascia using 0 Vicryl followed by closure of skin u sing 4-0 Monocryl in subcuticular fashion. Lower extremity incisions were closed using 3-0 Vicryl f or the deep layer and 4-0 Monocryl for the skin. Dressings were applied. Patient was taken to the ICU in critical, but stable condition. Dictated By: SHIRLEY RODRIGUES/GUY Conf#: [id number] DID#: [id number] CC: CAMERON MCWILLIAMS MD; ROBERT MULLEN MD;*EndCC*
--- NOTE | 2017-08-10 18:49 | RADRPT ---
Vent Rate: 108 bpm RR Interval: 0 msec SC Interval: 146 msec QRS Duration: 98 msec QT Interval: 348 msec QTC Interval: 466 msec P-R-T [place]: 81 - -78 - 85 degrees Sinus tachycardia with premature atrial complexes with aberrant conduction Left axis deviation Pulmonary disease pattern Abnormal ECG Electronically Signed By: Jacob Dill [id number]
--- NOTE | 2017-08-10 18:52 | RADRPT ---
Vent Rate: 78 bpm RR Interval: 0 msec NM Interval: 154 msec QRS Duration: 100 msec QT Interval: 366 msec QTC Interval: 417 msec P-R-T [place]: 57 - -32 - 44 degrees Normal sinus rhythm Left axis deviation Septal infarct , age undetermined Abnormal ECG Electronically Signed By: Jacob Dill [id number]
[2017-08-10] MEDS: FAMOTIDINE 20 MG INJ IV SCH (19:33)
[2017-08-10] MEDS: ATORVASTATIN 10 MG TAB PO SCH (20:53)
[2017-08-10] MEDS ORDERED: FAMOTIDINE 20 MG TAB PO PRN (21:00)
[2017-08-11] VITALS (46 sets, daily range): BP systolic 85–132; BP diastolic 49–74; PULSE 82–95; RESP 12–25; TEMP 98.8–99.8
[2017-08-11] MEDS ORDERED: PHENYLephrine 40 MG in DEXTROSE 5% 496 ML IV SCH ×2
[2017-08-11] MEDS: HYDROmorphONE 0.5 MG/0.5 ML SYG IV PRN ×3 (00:15→20:53)
[2017-08-11] MEDS: ACCU-CHEK XX SCH (02:00)
[2017-08-11] MEDS: PROPOFOL 100 ML IV SCH (04:00)
[2017-08-11 04:06] LABS: AADO2 Arterial 71.5 mmHg (7.0-24.0); Arterial COHb 0.3 % (0.0-3.0); Arterial Fraction of Oxyhgb 94.2 % (93.0-99.0); Arterial HCO3 23.9 mmol/L (22.0-26.0); Arterial MetHb 0 % (0.0-1.5); Arterial Total Hemglobin 11.5 g/dl (12.0-18.0); MODE NASAL CANNULA
[2017-08-11 04:53] LABS: BASOPHILS % 0.4 % (0.0-2.0); EOSINOPHILS % 0.4 % (0.0-7.0); HEMATOCRIT 31.4 % (42.0-52.0); HEMOGLOBIN 10.5 g/dl (14.0-18.0); LYMPHOCYTES # 0.9 10^3/ul (0.8-2.9); LYMPHOCYTES % 9.7 % (15.0-51.0); MEAN CORPUSCULAR HEMOGLOBIN 30.3 pg (29.0-33.0); MEAN CORPUSCULAR HGB CONC 33.4 g/dl (32.0-37.0); MEAN CORPUSCULAR VOLUME 90.8 fl (82.0-101.0); MEAN PLATELET VOLUME 10.8 fl (7.4-10.4); MONOCYTE # 1.3 10^3/ul (0.3-0.9); MONOCYTES % 14.4 % (0.0-11.0); NEUTROPHIL # 6.7 10^3/ul (1.6-7.5); NEUTROPHILS % 74.9 % (39.0-77.0); PLATELET COUNT 111 10^3/UL (140-415); POSITIVE DIFF @See below; RED BLOOD COUNT 3.46 10^6/ul (4.70-6.10); RED CELL DISTRIBUTION WIDTH 11.9 % (11.5-14.5)
[2017-08-11 05:18] LABS: INR 1.07; PT RATIO 1.1
[2017-08-11 05:19] LABS: PARTIAL THROMBOPLASTIN TIME 32.2 Sec (25.0-35.0)
[2017-08-11 05:27] LABS: CALCIUM 8.4 mg/dl (8.4-10.2); CREATININE 0.86 mg/dl (0.61-1.24); MAGNESIUM 1.8 mg/dl (1.7-2.5); POTASSIUM 4.6 mmol/L (3.5-5.1)
[2017-08-11] MEDS: LEVOTHYROXINE 25 MCG TAB PO SCH (05:53)
[2017-08-11] MEDS: CEFAZOLIN 1 GM/50 ML (PMX) 50 ML IVPB SCH (05:54)
--- NOTE | 2017-08-11 06:37 | PN ---
Date/Time of Note Date/Time of Note DATE: 08/11/17 TIME: 06:36 Assessment/Plan Lines/Catheters IV Catheter Type (from Nrs): Central Line Roach in Place (from Nrs): Yes Assessment/Plan Chief Complaint/Hosp Course extubated off drips labs ok remove lines and roach ASA, lipitor and beta blockers Problems: Exam/Review of Systems Vital Signs Vitals Vital Signs Date Time Temp Pulse Resp B/P Pulse Ox O2 Delivery O2 Flow Rate FiO2 08/11/17 05:45 89 12 109/51 99 08/11/17 05:00 99.8 08/10/17 23:36 2.0 08/10/17 20:00 Nasal Cannula 08/10/17 17:30 40 Intake and Output 08/10/17 08/10/17 08/11/17 15:00 23:00 07:00 Intake Total 2200 ml 817 ml 602.0 ml Output Total 936 ml 512 ml 333 ml Balance 1264 ml 305 ml 269.0 ml Results Result Diagram: 08/11/17 0415 08/11/17 0400 SHIRLEY CLEANING MD Aug 11, 2017 06:37
[2017-08-11] MEDS: INSULIN ASPART [NOVOLOG] 3 ML PEN SC SCH ×6 (07:35→21:01)
[2017-08-11] MEDS: OXYCODONE/ACETAMINOPHEN (5/325) TAB PO PRN (07:58)
[2017-08-11] MEDS: MAGNESIUM SULFATE 1 GM/D5W 100 ML IVPB PRN ×2 (07:59→10:59)
[2017-08-11] MEDS: FAMOTIDINE 20 MG INJ IV SCH ×2 (07:59→20:54)
[2017-08-11] MEDS: BENAZEPRIL 5 MG TAB PO SCH (09:00)
[2017-08-11] MEDS ORDERED: ENOXAPARIN 40 MG/0.4 ML SYG SC SCH (09:00)
[2017-08-11] MEDS ORDERED: INFLUENZA VIRUS VACCINE 0.5 ML (DISPENSING) IM* ONE (09:00)
[2017-08-11] MEDS: PROPRANOLOL 20 MG TAB PO SCH (09:00)
[2017-08-11] MEDS: SERTRALINE 50 MG TAB PO SCH (09:18)
[2017-08-11] MEDS: ASPIRIN 325 MG TAB PO SCH (09:18)
[2017-08-11] MEDS: METOPROLOL 25 MG TAB GTB SCH ×2 (09:20→20:55)
--- NOTE | 2017-08-11 12:12 | PN ---
Date/Time of Note Date/Time of Note DATE: 08/11/17 TIME: 12:09 Assessment/Plan VTE Prophylaxis VTE Prophylaxis Intervention: LMWH Lines/Catheters IV Catheter Type (from Nrsg): Cordis Urinary Cath still in place: Yes Reason Cath still needed: other (indicate) (d/c now) Assessment/Plan Assessment/Plan 1. cards: POD #1 cabg x3, doing very well, d/c lines, d/c insulin gtt andf convert to lantus + Subjective 24 Hr Interval Summary Free Text/Dictation no coimplaints, pain controlled, Exam/Review of Systems Vital Signs Vitals Vital Signs Date Time Temp Pulse Resp B/P Pulse Ox O2 Delivery O2 Flow Rate FiO2 08/11/17 10:00 98.8 84 20 114/68 97 08/11/17 08:00 Nasal Cannula 2.0 08/10/17 17:30 40 Intake and Output 08/10/17 08/10/17 08/11/17 15:00 23:00 07:00 Intake Total 2200 ml 817 ml 743.5 ml Output Total 936 ml 512 ml 444 ml Balance 1264 ml 305 ml 299.5 ml Exam nad, ctab, rrr Results Result Diagram: 08/11/17 0415 08/11/17 0400 Results 24 hrs Laboratory Tests Test 08/10/17 14:04 08/10/17 14:35 08/10/17 14:49 08/10/17 16:39 Blood Gas Specimen Source Blood arterial Arterial Blood Date Drawn 08/10/2017 3:35:47 PM Arterial Blood pH (Temp corrected) 7.316 L Arterial Blood pCO2 (Temp correct) 44.6 Arterial Blood pO2 (Temp corrected) 149.8 H Arterial Blood HCO3 22.3 Arterial Blood Base Excess -3.8 L Arterial Blood Oxygen Saturation 98.2 H Pato Test N/A Arterial Blood Gas Puncture Site A-Line Arterial Blood Carboxyhemoglobin 0.3 Arterial Blood Methemoglobin 0 Blood Gas A-a O2 Differential 228.9 H Oxyhemoglobin Percent 97.9 Total Hemoglobin 11.9 L Blood Gas Temperature 37.0 Blood Gas Respiration Rate 14.0 Blood Gas Actual Respiration Rate 20 Blood Gas Modality VENT - AC FiO2 60.0 Blood Gas Tidal Volume 550.0 Blood Gas Low PEEP Setting 5.0 Blood Gas Critical Value Read Back SARAH RN Blood Gas Notified Whom RDIX Blood Gas Notified Time 08/10/2017 4:00:30 PM Bedside Glucose 168 65 L White Blood Count 8.4 # Red Blood Count 3.31 #L Hemoglobin 10.0 #L Hematocrit 29.0 #L Mean Corpuscular Volume 87.6 Mean Corpuscular Hemoglobin 30.2 Mean Corpuscular Hemoglobin Concent 34.5 Red Cell Distribution Width 11.5 Platelet Count 97 #L Mean Platelet Volume 10.2 Neutrophils % Segmented Neutrophils % (Manual) 77 Band Neutrophils % (Manual) 2 Lymphocytes % Lymphocytes % (Manual) 19 Monocytes % Eosinophils % Eosinophils % (Manual) 2 Basophils % Nucleated Red Blood Cells % 0.0 Neutrophils # Neutrophils # (Manual) 6.5 Band Neutrophils # 0.1 Absolute Lymphocytes (Manual) 1.5 Lymphocytes # Monocytes # Eosinophils # Basophils # Nucleated Red Blood Cells # Platelet Estimate DECREASED Prothrombin Time 15.9 #H Prothrombin Time Ratio 1.2 INR International Normalized Ratio 1.25 Activated Partial Thromboplast Time 31.8 Sodium Level 141 Potassium Level 3.4 L Chloride Level 109 Carbon Dioxide Level 23 Anion Gap 12 Blood Urea Nitrogen 16 Creatinine 0.91 Glucose Level 134 Calcium Level 8.3 L Magnesium Level 2.0 Test 08/10/17 17:06 08/10/17 17:30 08/10/17 18:03 08/10/17 18:20 Bedside Glucose 90 70 57 L 109 Test 08/10/17 19:15 08/10/17 21:04 08/10/17 21:55 08/10/17 23:05 Bedside Glucose 86 92 118 124 Test 08/11/17 00:02 08/11/17 01:34 08/11/17 02:24 08/11/17 03:38 Bedside Glucose 127 146 136 140 Test 08/11/17 03:54 08/11/17 04:00 08/11/17 04:15 08/11/17 05:03 Blood Gas Specimen Source Blood arterial Arterial Blood Date Drawn 08/11/2017 3:50:13 AM Arterial Blood pH (Temp corrected) 7.386 Arterial Blood pCO2 (Temp correct) 40.8 Arterial Blood pO2 (Temp corrected) 72.8 L Arterial Blood HCO3 23.9 Arterial Blood Base Excess -1.0 Arterial Blood Oxygen Saturation 94.5 L Pato Test N/A Arterial Blood Gas Puncture Site A-Line Arterial Blood Carboxyhemoglobin 0.3 Arterial Blood Methemoglobin 0 Blood Gas A-a O2 Differential 71.5 H Oxyhemoglobin Percent 94.2 Total Hemoglobin 11.5 L Blood Gas Temperature 37.0 Blood Gas Actual Respiration Rate 18 Blood Gas Modality NASAL CANNULA FiO2 27.0 Blood Gas Notified Whom D [employer]WARD [employer]AMER Blood Gas Notified Time 08/11/2017 4:06:31 AM Sodium Level 140 Potassium Level 4.6 Chloride Level 109 Carbon Dioxide Level 24 Anion Gap 12 Blood Urea Nitrogen 18 Creatinine 0.86 Glucose Level 153 Calcium Level 8.4 Magnesium Level 1.8 White Blood Count 9.0 Red Blood Count 3.46 L Hemoglobin 10.5 L Hematocrit 31.4 L Mean Corpuscular Volume 90.8 Mean Corpuscular Hemoglobin 30.3 Mean Corpuscular Hemoglobin Concent 33.4 Red Cell Distribution Width 11.9 Platelet Count 111 L Mean Platelet Volume 10.8 H Neutrophils % 74.9 Lymphocytes % 9.7 L Monocytes % 14.4 H Eosinophils % 0.4 Basophils % 0.4 Nucleated Red Blood Cells % 0.0 Neutrophils # 6.7 Lymphocytes # 0.9 Monocytes # 1.3 H Eosinophils # 0.0 Basophils # 0.0 Nucleated Red Blood Cells # 0.0 Prothrombin Time 14.0 Prothrombin Time Ratio 1.1 INR International Normalized Ratio 1.07 Activated Partial Thromboplast Time 32.2 Bedside Glucose 154 Test 08/11/17 06:04 08/11/17 06:58 08/11/17 08:10 Bedside Glucose 145 126 124 Medications Medications Current Medications Lorazepam (Ativan) 0.5 mg Q8H PRN PO ANXIETY; Start 08/09/17 at 00:30 Ondansetron HCl (Zofran Tab) 4 mg Q6H PRN PO NAUSEA AND/OR VOMITING; Start at 00:30 Nitroglycerin (Nitroglycerin (Sl Tab) 0.4 Mg) 1 tab Q5M PRN SL CHEST PAIN; Start 08/09/17 at 00:30 Acetaminophen (Tylenol Tab) 650 mg Q6H PRN PO PAIN LEVEL 1-3 OR FEVER Last administered on 08/11/17t 03:56; Admin Dose 650 MG; Start 08/09/17 at 00:30 Acetaminophen/ Hydrocodone Bitart ([place] (5/325)) 1 tab Q6H PRN PO PAIN LEVEL 4 -6; Start 08/09/17 at 00:30 Docusate Sodium (Colace) 100 mg Q12H PRN PO CONSTIPATION; Start 08/09/17 at 00 :30 Enoxaparin Sodium (Lovenox) 40 mg DAILY SC Last administered on 08/09/17 11: 26; Admin Dose 40 MG; Start 08/09/17 at 09:00; Status Future Hold Benazepril HCl (Lotensin) 2.5 mg DAILY PO Last administered on 08/09/17 11:00 ; Admin Dose 2.5 MG; Start 08/09/17 at 09:00 Propranolol HCl (Inderal) 20 mg DAILY PO Last administered on 08/09/17 11:00 ; Admin Dose 20 MG; Start 08/09/17 at 09:00 Sertraline HCl (Zoloft) 50 mg DAILY PO Last administered on 08/11/17 09:18; Admin Dose 50 MG; Start 08/09/17 at 09:00 Levothyroxine Sodium (Synthroid) 25 mcg DAILY@06 PO Last administered on 05:53; Admin Dose 25 MCG; Start 08/09/17 at 07:30 Diagnostic Test (Pha) (Accu-Chek) 1 ea 02 XX ; Start 08/10/17 at 02:00 Insulin Glargine (Lantus) 25 unit DAILY@08 SC ; Start 08/10/17 at 08:00 Miscellaneous Information 1 ea NOTE XX ; Start 08/09/17 at 10:30 Glucose (Glutose) 15 gm Q15M PRN PO DECREASED GLUCOSE; Start 08/09/17 at 10:30 Glucose (Glutose) 22.5 gm Q15M PRN PO DECREASED GLUCOSE; Start 08/09/17 at 10: 30 Dextrose (D50w Syringe) 25 ml Q15M PRN IV DECREASED GLUCOSE Last administered on 08/10/17 18:04; Admin Dose 25 ML; Start 08/09/17 at 10:30 Dextrose (D50w Syringe) 50 ml Q15M PRN IV DECREASED GLUCOSE; Start 08/09/17 at 10:30 Glucagon (Glucagen) 1 mg Q15M PRN IM DECREASED GLUCOSE; Start 08/09/17 at 10: 30 Glucose 15 gm 15 gm Q15M PRN BUCCAL DECREASED GLUCOSE; Start 08/09/17 at 10:30 Potassium Chloride/Calcium Chloride/Dextrose/ Sodium Chloride (KCl/Ca Chloride/ D5-1/4ns) 1,030 ml @ 60 mls/hr [id number] IV Last administered on 08/10/17 16: 28; Admin Dose 60 MLS/HR; Start 08/10/17 at 15:00 Hydromorphone HCl (Dilaudid) 0.2 mg Q15M PRN IV PAIN LEVEL 1-5; Start at 14:30 Hydromorphone HCl (Dilaudid) 0.4 mg Q15M PRN IV PAIN LEVEL 6-10 Last administered on 08/11/17 05:30; Admin Dose 0.4 MG; Start 08/10/17 at 14:30 Oxycodone/ Acetaminophen (Percocet (5/ 325)) 1 tab Q3H PRN PO PAIN LEVEL 1-5 Last administered on 08/11/17 07:58; Admin Dose 1 TAB; Start 08/10/17 at 14: 30 Oxycodone/ Acetaminophen (Percocet (5/ 325)) 2 tab Q3H PRN PO PAIN LEVEL 6-10; Start 08/10/17 at 14:30 Ondansetron HCl (Zofran Inj) 4 mg Q6H PRN IV NAUSEA AND/OR VOMITING; Start at 14:30 Famotidine (Pepcid Iv) 20 mg BID@08,20 IV Last administered on 08/11/17 07:59 ; Admin Dose 20 MG; Start 08/10/17 at 20:00 Famotidine (Pepcid) 20 mg BID PRN PO WHEN STARTING PO DIET; Start 08/10/17 at 21:00 Aspirin (Aspirin) 325 mg DAILY PO Last administered on 08/11/17 09:18; Admin Dose 325 MG; Start 08/11/17 at 09:00 Acetaminophen 650 mg 650 mg Q3H PRN PO ELEVATED TEMPERATURE; Start 08/10/17 at 14:30 Magnesium Sulfate/ Dextrose (Magnesium Sulfate 1 Gm/D5W) 100 ml @ 100 mls/hr PRN PRN IVPB PENDING LAB VALUE Last administered on 08/11/17 10:59; Admin Dose 100 MLS/HR; Start 08/10/17 at 14:30 Ketorolac Tromethamine (Toradol) 30 mg Q6H PRN IV PAIN; Start 08/10/17 at 14: 30; Stop 08/13/17 at 14:29 Dextrose (D50w Syringe) 25 ml Q15M PRN IV Till BS 80 mg/dL or above x2; Start 08/10/17 at 14:30 Dextrose 50 ml 50 ml Q15M PRN IV Till BS 80 mg/dL or above x2; Start 08/10/17 at 14:30 Propofol 100 ml @ 2.508 mls/ hr Q12H IV Last administered on 08/10/17t 16:12 ; Admin Dose 5.016 MLS/HR; Start 08/10/17 at 16:00 Phenylephrine HCl/ Dextrose (Elliot-Syneph/D5W) 500 ml @ 0 mls/hr TITRATE IV ; Start 08/11/17 at 00:00 Metoprolol Tartrate (Lopressor) 25 mg BID GTB Last administered on 08/11/17 09:20; Admin Dose 25 MG; Start 08/11/17 at 09:00 Atorvastatin Calcium (Lipitor) 40 mg HS NGT ; Start 08/11/17 at 21:00 MEREDITH DICKINSON MD Aug 11, 2017 12:12
[2017-08-11] MEDS: INSULIN GLARGINE [LANtus] 3 ML PEN SC SCH (14:15)
--- NOTE | 2017-08-11 19:35 | RADRPT ---
Vent Rate: 87 bpm RR Interval: 0 msec [place] Interval: 136 msec QRS Duration: 96 msec QT Interval: 348 msec QTC Interval: 418 msec P-R-T [place]: 53 - -27 - 81 degrees Normal sinus rhythm Nonspecific T wave abnormality Abnormal ECG Electronically Signed By: Jacob Dill [id number]
[2017-08-11] MEDS: ATORVASTATIN 40 MG TAB NGT SCH (20:54)
[2017-08-12] VITALS (43 sets, daily range): BP systolic 91–148; BP diastolic 52–86; PULSE 65–94; RESP 16–34
[2017-08-12] MEDS: HYDROmorphONE 0.5 MG/0.5 ML SYG IV PRN ×2 (00:02→05:58)
[2017-08-12] MEDS: ACCU-CHEK XX SCH (02:00)
[2017-08-12] MEDS: HYDROCODONE/APAP (5/325) TAB PO PRN ×2 (02:16→13:10)
[2017-08-12] MEDS: LEVOTHYROXINE 25 MCG TAB PO SCH (06:53)
[2017-08-12 07:05] LABS: ABNORMAL IP MESSAGE 1; BASOPHIL # 0.1 10^3/ul (0.0-0.1); BASOPHILS % 0.5 % (0.0-2.0); EOSINOPHILS # 0.3 10^3/ul (0.0-0.5); EOSINOPHILS % 2.8 % (0.0-7.0); HEMATOCRIT 30.8 % (42.0-52.0); HEMOGLOBIN 10.2 g/dl (14.0-18.0); LYMPHOCYTES # 1.8 10^3/ul (0.8-2.9); LYMPHOCYTES % 15.8 % (15.0-51.0); MEAN CORPUSCULAR HEMOGLOBIN 30.3 pg (29.0-33.0); MEAN CORPUSCULAR HGB CONC 33.1 g/dl (32.0-37.0); MEAN CORPUSCULAR VOLUME 91.4 fl (82.0-101.0); MEAN PLATELET VOLUME 10.8 fl (7.4-10.4); MONOCYTE # 1.9 10^3/ul (0.3-0.9); MONOCYTES % 17.1 % (0.0-11.0); NEUTROPHIL # 7.2 10^3/ul (1.6-7.5); NEUTROPHILS % 63.4 % (39.0-77.0); PLATELET COUNT 127 10^3/UL (140-415); POSITIVE DIFF @See below; RED BLOOD COUNT 3.37 10^6/ul (4.70-6.10); RED CELL DISTRIBUTION WIDTH 11.8 % (11.5-14.5); WHITE BLOOD COUNT 11.3 10^3/ul (4.8-10.8)
--- NOTE | 2017-08-12 07:15 | PN ---
Date/Time of Note Date/Time of Note DATE: 08/12/17 TIME: 07:13 Assessment/Plan Lines/Catheters IV Catheter Type (from Nrsg): Saline Lock Catalan in Place (from Nrsg): No Assessment/Plan Assessment/Plan s/p cabg dm II tubes still draining ok to telemetry Subjective 24 Hr Interval Summary Constitutional: no complaints Feeding: baseline diet Pain Control: mild Exam/Review of Systems Vital Signs Vitals Vital Signs Date Time Temp Pulse Resp B/P Pulse Ox O2 Delivery O2 Flow Rate FiO2 08/12/17 07:00 85 19 119/67 97 Nasal Cannula 08/12/17 05:00 98.2 08/12/17 04:00 2.0 08/10/17 17:30 40 Intake and Output 08/11/17 08/11/17 08/12/17 14:59 22:59 06:59 Intake Total 749.0 ml 620 ml 620 ml Output Total 637 ml 141 ml 80 ml Balance 112.0 ml 479 ml 540 ml Exam Constitutional: alert, oriented, well developed Psych: nl mood/affect Head: normocephalic Eyes: EOMI Neck: supple Respiratory: normal air movement, other (chest tubes 700 cc total 290 cc/24) Cardiovascular: regular rate and rhythm Gastrointestinal: soft Musculoskeletal: nl extremities to inspection Extremities: other (right venectomy ok) Neurological: AUGER MACHINE OFFBEARER II-XII intact Results Result Diagram: 08/12/17 0641 08/11/17 0400 KESHIA CARRASCO MD Aug 12, 2017 07:15
[2017-08-12 07:26] LABS: CALCIUM 8.5 mg/dl (8.4-10.2); CREATININE 0.92 mg/dl (0.61-1.24); POTASSIUM 4.5 mmol/L (3.5-5.1)
[2017-08-12] MEDS: INSULIN ASPART [NOVOLOG] 3 ML PEN SC SCH ×7 (07:45→20:36)
[2017-08-12] MEDS: ASPIRIN 325 MG TAB PO SCH (08:11)
[2017-08-12] MEDS: BENAZEPRIL 5 MG TAB PO SCH (08:12)
[2017-08-12] MEDS: SERTRALINE 50 MG TAB PO SCH (08:12)
[2017-08-12] MEDS: METOPROLOL 25 MG TAB GTB SCH ×2 (08:12→20:33)
[2017-08-12] MEDS: FAMOTIDINE 20 MG INJ IV SCH (08:13)
[2017-08-12] MEDS: INSULIN GLARGINE [LANtus] 3 ML PEN SC SCH (08:14)
--- NOTE | 2017-08-12 08:32 | RADRPT ---
PROCEDURE: Chest 1 views. CLINICAL INDICATION: Shortness of breath. Status post CABG. TECHNIQUE: Single view of the chest was obtained. COMPARISON: DR GARNER 08/10/2017 FINDINGS: Heart size is within normal limits. Median sternotomy wires overlie the heart. Mediastinal drain is stable. Endotracheal tube and Willis-D[place] catheter have been removed. The lungs are hypoinflated. Smal l bilateral pleural effusions with associated basilar atelectasis/infiltrates are observed. Osseous structures are intact. IMPRESSION: Cardiomegaly . Small bilateral pleural effusions with associated basilar atelectasis/infiltrates. Hypoinflated lungs. RPTAT: AA .Seun Thorne MD, MD Date Time Electronically viewed and signed by .Seun Thorne MD, on 08/12/2017 08:32 .P/
[2017-08-12 11:23] LABS: Arterial Base Excess -1.6 mmol/L (-3.0-3); Arterial COHb 0.3 % (0.0-3.0); Arterial Fraction of Oxyhgb 97.8 % (93.0-99.0); Arterial HCO3 24.7 mmol/L (22.0-26.0); Arterial MetHb 0.1 % (0.0-1.5); Arterial Total Hemglobin 11.1 g/dl (12.0-18.0); Blood Gas PS 10; MODE VENT - CPAP
--- NOTE | 2017-08-12 12:27 | PN ---
Date/Time of Note Date/Time of Note DATE: 08/12/17 TIME: 12:00 Assessment/Plan VTE Prophylaxis VTE Prophylaxis Intervention: SCD's Lines/Catheters IV C[facility] Type ([facility] Saline Lock Urinary Cath still in place: No Assessment/Plan Assessment/Plan 57-year-old male with: 1. Status post coronary artery bypass surgery for multivessel coronary artery disease and status post NSTEMI. POD#2 Patient doing fairly well postoperatively, he has been extubated, chest tube still in place, he started ambulating already, he is on room air. Pain is controlled. Blood sugars are controlled. Per cardiothoracic surgery okay to transfer to telemetry. Continue current medications. PT, psychotherapist social worker and case management to consult regarding placement at time of discharge. 2. Diabetes mellitus, insulin requiring, was previously on NPH and Humalog, status post DKA at [facility]'s couple of days prior to admission. Diabetic education pending. Will adjust insulin regimen as needed. A1c 8.2 3. Major depressive disorder: Continue current medications 4. Hypertension: Continue current medication 5. Hyperlipidemia: Continue statin therapy. 6. Hypothyroidism: Continue levothyroxine. Recheck TFTs in 4-6 weeks for further adjustment of levothyroxine if needed. 7. Mild hematuria and dysuria, status post [place] trauma, check UA and urine culture. Monitor urine output. Prophylaxis: SCDs for DVT prophylaxis, Pepcid for GI prophylaxis. Disposition: Blood sugar control, transfer to telemetry, chest tube care per cardiothoracic surgery, physical therapy, case management and social service consult. Subjective 24 Hr Interval Summary Free Text/Dictation Patient doing better today, he is actually on room air, he has multiple complaints not related to his current medical diagnoses more about his social situation, he has no one at home to take care of him after discharge. Otherwise his blood sugars have been fluctuating, diabetic education pending. Patient on diabetic diet and now back on his subcutaneous insulin regimen. He is awaiting a telemetry bed. Exam/Review of Systems Vital Signs Vitals Vital Signs Date Time Temp Pulse Resp B/P Pulse Ox O2 Delivery O2 Flow Rate FiO2 08/12/17 11:00 83 17 99/64 93 Nasal Cannula 2.0 08/12/17 08:00 98.2 08/10/17 17:30 40 Intake and Output 08/11/17 08/11/1708/12/17 15:00 23:00 07:00 Intake Total 607.5 ml 620 ml 620 ml Output Total 632 ml 91 ml 80 ml Balance -24.5 ml 529 ml 540 ml Exam Constitutional: alert, oriented, well developed Respiratory: diminished breath sounds (Decreased breath sounds at bases.), normal air movement Cardiovascular: nl pulses, other (Mid sternal incision dressing in place. Chest tube in place), regular rate and rhythm Gastrointestinal: non-tender, soft Musculoskeletal: nl extremities to inspection, nl gait and stance Extremities: normal pulses Neurological: SERVICE DESK LEAD II-XII intact, nl mental status, nl speech, nl strength Results Result Diagram: 08/12/17 0641 08/12/17 0641 Results 24 hrs Laboratory Tests Test 08/11/17 12:18 08/11/17 14:13 08/11/17 17:40 08/11/17 20:45 Bedside Glucose 193 144 227 H 292 H Test 08/12/17 01:56 08/12/17 06:02 08/12/17 06:41 08/12/17 07:37 Bedside Glucose 165 189 251 H White Blood Count 11.3 #H Red Blood Count 3.37 L Hemoglobin 10.2 L Hematocrit 30.8 L Mean Corpuscular Volume 91.4 Mean Corpuscular Hemoglobin 30.3 Mean Corpuscular Hemoglobin Concent 33.1 Red Cell Distribution Width 11.8 Platelet Count 127 L Mean Platelet Volume 10.8 H Neutrophils % 63.4 Lymphocytes % 15.8 Monocytes % 17.1 H Eosinophils % 2.8 Basophils % 0.5 Nucleated Red Blood Cells % 0.0 Neutrophils # 7.2 Lymphocytes # 1.8 Monocytes # 1.9 H Eosinophils # 0.3 Basophils # 0.1 Nucleated Red Blood Cells # 0.0 Sodium Level 135 Potassium Level 4.5 Chloride Level 100 Carbon Dioxide Level 29 Anion Gap 11 Blood Urea Nitrogen 19 Creatinine 0.92 Glucose Level 199 Calcium Level 8.5 Test 08/12/17 11:37 Bedside Glucose 210 Imaging Free Text/Dictation PROCEDURE: Chest 1 views. CLINICAL INDICATION: Shortness of breath. Status post CABG. TECHNIQUE: Single view of the chest was obtained. COMPARISON: DR GARNER 08/10/2017 FINDINGS: Heart size is within normal limits. Median sternotomy wires overlie the heart. Mediastinal drain is stable. Endotracheal tube and [place] catheter have been removed. The lungs are hypoinflated. Small bilateral pleural effusions with associated basilar atelectasis/infiltrates are observed. Osseous structures are intact. IMPRESSION: Cardiomegaly . Small bilateral pleural effusions with associated basilar atelectasis/ infiltrates. Hypoinflated lungs. RPTAT: AA .Seun Thorne MD, MD Date Time Electronically viewed and signed by .Seun Thorne MD, on 08/12/2017 08:32 Medications Medications Current Medications Lorazepam (Ativan) 0.5 mg Q8H PRN PO ANXIETY; Start 08/09/17 at 00:30 Ondansetron HCl (Zofran Tab) 4 mg Q6H PRN PO NAUSEA AND/OR VOMITING; Start at 00:30 Nitroglycerin (Nitroglycerin (Sl Tab) 0.4 Mg) 1 tab Q5M PRN SL CHEST PAIN; Start 08/09/17 at 00:30 Acetaminophen (Tylenol Tab) 650 mg Q6H PRN PO PAIN LEVEL 1-3 OR FEVER Last administered on 08/11/17 03:56; Admin Dose 650 MG; Start 08/09/17 at 00:30 Acetaminophen/ Hydrocodone Bitart ([place] (5/325)) 1 tab Q6H PRN PO PAIN LEVEL 4 -6 Last administered on 08/12/17 02:16; Admin Dose 1 TAB; Start 08/09/17 at 00:30 Docusate Sodium (Colace) 100 mg Q12H PRN PO CONSTIPATION; Start 08/09/17 at 00 :30 Enoxaparin Sodium (Lovenox) 40 mg DAILY SC Last administered on 08/09/17 11: 26; Admin Dose 40 MG; Start 08/09/17 at 09:00; Status Future Hold Benazepril HCl (Lotensin) 2.5 mg DAILY PO Last administered on 08/12/17 08:12 ; Admin Dose 2.5 MG; Start 08/09/17 at 09:00 Sertraline HCl (Zoloft) 50 mg DAILY PO Last administered on 08/12/17 08:12; Admin Dose 50 MG; Start 08/09/17 at 09:00 Levothyroxine Sodium (Synthroid) 25 mcg DAILY@06 PO Last administered on 06:53; Admin Dose 25 MCG; Start 08/09/17 at 07:30 Diagnostic Test (Pha) (Accu-Chek) 1 ea 02 XX ; Start 08/10/17 at 02:00 Insulin Glargine (Lantus) 25 unit DAILY@08 SC Last administered on 08/12/17 08:14; Admin Dose 25 UNIT; Start 08/10/17 at 08:00 Miscellaneous Information 1 ea NOTE XX ; Start 08/09/17 at 10:30 Glucose (Glutose) 15 gm Q15M PRN PO DECREASED GLUCOSE; Start 08/09/17 at 10:30 Glucose (Glutose) 22.5 gm Q15M PRN PO DECREASED GLUCOSE; Start 08/09/17 at 10: 30 Dextrose (D50w Syringe) 25 ml Q15M PRN IV DECREASED GLUCOSE Last administered on 08/10/17 18:04; Admin Dose 25 ML; Start 08/09/17 at 10:30 Dextrose (D50w Syringe) 50 ml Q15M PRN IV DECREASED GLUCOSE; Start 08/09/17 at 10:30 Glucagon (Glucagen) 1 mg Q15M PRN IM DECREASED GLUCOSE; Start 08/09/17 at 10: 30 Glucose (Glutose) 15 gm Q15M PRN BUCCAL DECREASED GLUCOSE; Start 08/09/17 at 10:30 Hydromorphone HCl (Dilaudid) 0.2 mg Q15M PRN IV PAIN LEVEL 1-5; Start at 14:30 Hydromorphone HCl (Dilaudid) 0.4 mg Q15M PRN IV PAIN LEVEL 6-10 Last administered on 08/12/17 05:58; Admin Dose 0.4 MG; Start 08/10/17 at 14:30 Oxycodone/ Acetaminophen (Percocet (5/ 325)) 1 tab Q3H PRN PO PAIN LEVEL 1-5 Last administered on 08/11/17 07:58; Admin Dose 1 TAB; Start 08/10/17 at 14: 30 Oxycodone/ Acetaminophen (Percocet (5/ 325)) 2 tab Q3H PRN PO PAIN LEVEL 6-10; Start 08/10/17 at 14:30 Ondansetron HCl (Zofran Inj) 4 mg Q6H PRN IV NAUSEA AND/OR VOMITING; Start at 14:30 Famotidine (Pepcid Iv) 20 mg BID@08,20 IV Last administered on 08/12/17 08:13 ; Admin Dose 20 MG; Start 08/10/17 at 20:00 Famotidine (Pepcid) 20 mg BID PRN PO WHEN STARTING PO DIET; Start 08/10/17 at 21:00 Aspirin (Aspirin) 325 mg DAILY PO Last administered on 08/12/17 08:11; Admin Dose 325 MG; Start 08/11/17 at 09:00 Acetaminophen 650 mg 650 mg Q3H PRN PO ELEVATED TEMPERATURE; Start 08/10/17 at 14:30 Magnesium Sulfate/ Dextrose (Magnesium Sulfate 1 Gm/D5W) 100 ml @ 100 mls/hr PRN PRN IVPB PENDING LAB VALUE Last administered on 08/11/17 10:59; Admin Dose 100 MLS/HR; Start 08/10/17 at 14:30 Ketorolac Tromethamine 30 mg 30 mg Q6H PRN IV PAIN; Start 08/10/17 at 14:30; Stop 08/13/17 at 14:29 Phenylephrine HCl/ Dextrose ([place]/D5W) 500 ml @ 0 mls/hr TITRATE IV ; Start 08/11/17 at 00:00 Metoprolol Tartrate (Lopressor) 25 mg BID GTB Last administered on 08/12/17 08:12; Admin Dose 25 MG; Start 08/11/17 at 09:00 Atorvastatin Calcium (Lipitor) 40 mg HS NGT Last administered on 08/11/17 20: 54; Admin Dose 40 MG; Start 08/11/17 at 21:00 ROBERT MULLEN Aug 12, 2017 12:12
[2017-08-12 16:38] LABS: ADD UMIC YES; UR ASCORBIC ACID NEGATIVE (NEGATIVE); UR BILIRUBIN (Dip) NEGATIVE (NEGATIVE); UR BLOOD (Dip) 3+ mg/dL (NEGATIVE); UR CLARITY CLEAR (CLEAR); UR COLOR YELLOW (YELLOW); UR GLUCOSE (Dip) 3+ mg/dL (NEGATIVE); UR KETONES (Dip) 1+ mg/dL (NEGATIVE); UR LEUKOCYTE ESTERASE (Dip) NEGATIVE Leu/ul (NEGATIVE); UR MUCUS FEW /HPF (NONE SEEN); UR NITRITE (Dip) NEGATIVE (NEGATIVE); UR RBC 63 /HPF (0-5); UR SPECIFIC GRAVITY (Dip) 1.027 (1.003-1.030); UR TOTAL PROTEIN (Dip) NEGATIVE (NEGATIVE); UR UROBILINOGEN (Dip) 1+ mg/dL (NEGATIVE)
[2017-08-12] MEDS: OXYCODONE/ACETAMINOPHEN (5/325) TAB PO PRN (19:43)
[2017-08-12] MEDS: ATORVASTATIN 40 MG TAB NGT SCH (20:33)
[2017-08-13] VITALS (10 sets, daily range): BP systolic 108–125; BP diastolic 52–72; PULSE 79–83; RESP 18–19
[2017-08-13] MEDS: OXYCODONE/ACETAMINOPHEN (5/325) TAB PO PRN ×2 (00:25→04:31)
[2017-08-13] MEDS: ACCU-CHEK XX SCH (01:28)
[2017-08-13] MEDS: LEVOTHYROXINE 25 MCG TAB PO SCH (05:22)
--- NOTE | 2017-08-13 06:08 | PN ---
Date/Time of Note Date/Time of Note DATE: 08/13/17 TIME: 06:08 Assessment/Plan Lines/Catheters IV Catheter Type (from [facility]): Saline Lock [place] in Place (from [facility]): No Assessment/Plan Chief Complaint/Hosp Course doing well NSR chest tube still draining increase activity Problems: Exam/Review of Systems Vital Signs Vitals Vital Signs Date Time Temp Pulse Resp B/P Pulse Ox O2 Delivery O2 Flow Rate FiO2 08/13/17 04:04 98.0 73 18 125/72 96 08/13/17 00:00 Nasal Cannula 2.0 08/10/17 17:30 40 Intake and Output 08/12/17 08/12/17 08/13/17 15:00 23:00 07:00 Intake Total 780 ml 750 ml 180 ml Output Total 920 ml 40 ml Balance -140 ml 710 ml 180 ml Results Result Diagram: 08/12/17 0641 08/12/17 0641 SHIRLEY CLEANING MD Aug 13, 2017 06:08
[2017-08-13] MEDS: INSULIN ASPART [NOVOLOG] 3 ML PEN SC SCH ×7 (08:18→19:53)
[2017-08-13] MEDS: INSULIN GLARGINE [LANtus] 3 ML PEN SC SCH (08:19)
[2017-08-13 08:21] LABS: BASOPHILS % 0.4 % (0.0-2.0); EOSINOPHILS # 0.3 10^3/ul (0.0-0.5); EOSINOPHILS % 3.6 % (0.0-7.0); HEMATOCRIT 27.1 % (42.0-52.0); HEMOGLOBIN 9.2 g/dl (14.0-18.0); LYMPHOCYTES # 1.6 10^3/ul (0.8-2.9); MEAN CORPUSCULAR HEMOGLOBIN 30.4 pg (29.0-33.0); MEAN CORPUSCULAR HGB CONC 33.9 g/dl (32.0-37.0); MEAN CORPUSCULAR VOLUME 89.4 fl (82.0-101.0); MONOCYTE # 1.4 10^3/ul (0.3-0.9); MONOCYTES % 17.4 % (0.0-11.0); NEUTROPHIL # 4.8 10^3/ul (1.6-7.5); PLATELET COUNT 123 10^3/UL (140-415); RED BLOOD COUNT 3.03 10^6/ul (4.70-6.10); RED CELL DISTRIBUTION WIDTH 11.9 % (11.5-14.5); WHITE BLOOD COUNT 8.2 10^3/ul (4.8-10.8)
[2017-08-13 08:54] LABS: CALCIUM 8.4 mg/dl (8.4-10.2); CREATININE 0.95 mg/dl (0.61-1.24); MAGNESIUM 1.9 mg/dl (1.7-2.5); POTASSIUM 4.5 mmol/L (3.5-5.1)
[2017-08-13] MEDS: METOPROLOL 25 MG TAB GTB SCH (09:14)
[2017-08-13] MEDS: SERTRALINE 50 MG TAB PO SCH (09:14)
[2017-08-13] MEDS: ASPIRIN 325 MG TAB PO SCH (09:14)
[2017-08-13] MEDS: BENAZEPRIL 5 MG TAB PO SCH (09:15)
--- NOTE | 2017-08-13 11:42 | PN ---
Date/Time of Note Date/Time of Note DATE: 08/13/17 TIME: 11:41 Assessment/Plan VTE Prophylaxis VTE Prophylaxis Intervention: SCD's Lines/Catheters IV Catheter Type (from [facility]): Saline Lock Urinary Cath still in place: No Assessment/Plan Assessment/Plan 57-year-old male with: 1. Status post coronary artery bypass surgery for multivessel coronary artery disease and status post NSTEMI. POD#3 Patient doing fairly well postoperatively, Chest tube was removed today, ambulating already, he is on room air. Pain is controlled. Blood sugars are better controlled. Per cardiothoracic surgery okay to discharge to assisted facility. Continue current medications. PT, vp digital marketing social media and crm and case management to consult regarding placement at time of discharge. D/c to SNF when bed available 2. Diabetes mellitus, insulin requiring, was previously on NPH and Humalog, status post DKA at [facility]'s couple of days prior to admission. Diabetic education, A1c 8.2. Will adjust insulin regimen, patient should remain on Lantus and scheduled pre meal insulin along with SSI as needed. 3. Major depressive disorder: Continue current medications 4. Hypertension: Continue current medication 5. Hyperlipidemia: Continue statin therapy. 6. Hypothyroidism: Continue levothyroxine. Recheck TFTs in 4-6 weeks for further adjustment of levothyroxine if needed. 7. Mild hematuria and dysuria, status post [place] trauma, patient with no further complaints today, urine analysis no signs of infection mostly hematuria. Urine culture pending. No signs of acute infection. Prophylaxis: SCDs for DVT prophylaxis, Pepcid for GI prophylaxis. Disposition: Discharged to assisted facility today if bed available. Follow-up with primary care physician and cardiothoracic surgery along with cardiology as an outpatient after discharge from assisted facility. Subjective 24 Hr Interval Summary Free Text/Dictation Patient remained stable, he is on room air, chest tube was removed this morning. He is ambulating and doing stairs already per physical therapy. He has no one to take care of him at home and is worried about his postoperative care therefore requesting a assisted facility placement. He also needs better control of his blood sugars. Therefore he will be discharged to assisted facility today if bed available. Dr. Castellanos already agreed with discharge to SNF. Exam/Review of Systems Vital Signs Vitals Vital Signs Date Time Temp Pulse Resp B/P Pulse Ox O2 Delivery O2 Flow Rate FiO2 08/13/17 11:21 98.7 88 18 113/63 93 08/13/17 00:00 Nasal Cannula 2.0 08/10/17 17:30 40 Intake and Output 08/12/17 08/12/17 08/13/17 15:00 23:00 07:00 Intake Total 780 ml 750 ml 180 ml Output Total 920 ml 40 ml Balance -140 ml 710 ml 180 ml Exam Constitutional: alert, oriented, well developed Respiratory: clear to auscultation, normal air movement, other (Midsternal dressing in place.) Cardiovascular: nl pulses, regular rate and rhythm Gastrointestinal: non-tender, soft Musculoskeletal: nl extremities to inspection Extremities: normal pulses, other (No edema, clubbing or cyanosis) Neurological: TRACK REPAIR WORKER II-XII intact, nl mental status, nl speech, other (Patient getting stronger every day.) Results Result Diagram: 08/13/17 0741 08/13/17 0741 Results 24 hrs Laboratory Tests Test 08/12/17 12:45 08/12/17 17:13 08/12/17 20:29 08/13/17 07:41 Urine Color YELLOW Urine Clarity CLEAR Urine pH 5.0 Urine Specific [place] 1.027 Urine Ketones 1+ H Urine Nitrite NEGATIVE Urine Bilirubin NEGATIVE Urine Urobilinogen 1+ H Urine Leukocyte Esterase NEGATIVE Urine Microscopic RBC 63 H Urine Microscopic WBC 2 Urine Mucus FEW A Urine Hemoglobin 3+ H Urine Glucose 3+ H Urine Total Protein NEGATIVE Bedside Glucose 180 161 White Blood Count 8.2 # Red Blood Count 3.03 L Hemoglobin 9.2 L Hematocrit 27.1 L Mean Corpuscular Volume 89.4 Mean Corpuscular Hemoglobin 30.4 Mean Corpuscular Hemoglobin Concent 33.9 Red Cell Distribution Width 11.9 Platelet Count 123 L Mean Platelet Volume 11.0 H Neutrophils % 59.0 Lymphocytes % 19.0 Monocytes % 17.4 H Eosinophils % 3.6 Basophils % 0.4 Nucleated Red Blood Cells % 0.0 Neutrophils # 4.8 Lymphocytes # 1.6 Monocytes # 1.4 H Eosinophils # 0.3 Basophils # 0.0 Nucleated Red Blood Cells # 0.0 Sodium Level 134 L Potassium Level 4.5 Chloride Level 97 Carbon Dioxide Level 32 H Anion Gap 10 Blood Urea Nitrogen 16 Creatinine 0.95 Glucose Level 261 H Calcium Level 8.4 Magnesium Level 1.9 Test 08/13/17 08:08 Bedside Glucose 254 H Medications Medications Current Medications Lorazepam (Ativan) 0.5 mg Q8H PRN PO ANXIETY Last administered on 08/12/17 19 :43; Admin Dose 0.5 MG; Start 08/09/17 at 00:30 Ondansetron HCl (Zofran Tab) 4 mg Q6H PRN PO NAUSEA AND/OR VOMITING; Start at 00:30 Acetaminophen (Tylenol Tab) 650 mg Q6H PRN PO PAIN LEVEL 1-3 OR FEVER Last administered on 08/11/17 03:56; Admin Dose 650 MG; Start 08/09/17 at 00:30 Acetaminophen/ Hydrocodone Bitart ([place] (5/325)) 1 tab Q6H PRN PO PAIN LEVEL 4 -6 Last administered on 08/12/17 13:10; Admin Dose 1 TAB; Start 08/09/17 at 00:30 Docusate Sodium (Colace) 100 mg Q12H PRN PO CONSTIPATION; Start 08/09/17 at 00 :30 Enoxaparin Sodium (Lovenox) 40 mg DAILY SC Last administered on 08/09/17 11: 26; Admin Dose 40 MG; Start 08/09/17 at 09:00; Status Future Hold Benazepril HCl (Lotensin) 2.5 mg DAILY PO Last administered on 08/13/17 09:15 ; Admin Dose 2.5 MG; Start 08/09/17 at 09:00 Sertraline HCl (Zoloft) 50 mg DAILY PO Last administered on 08/13/17 09:14; Admin Dose 50 MG; Start 08/09/17 at 09:00 Levothyroxine Sodium (Synthroid) 25 mcg DAILY@06 PO Last administered on 05:22; Admin Dose 25 MCG; Start 08/09/17 at 07:30 Diagnostic Test (Pha) (Accu-Chek) 1 ea 02 XX ; Start 08/10/17 at 02:00 Insulin Glargine (Lantus) 25 unit DAILY@08 SC Last administered on 08/13/17 08:19; Admin Dose 25 UNIT; Start 08/10/17 at 08:00 Glucose (Glutose) 15 gm Q15M PRN PO DECREASED GLUCOSE; Start 08/09/17 at 10:30 Glucose (Glutose) 22.5 gm Q15M PRN PO DECREASED GLUCOSE; Start 08/09/17 at 10: 30 Dextrose (D50w Syringe) 25 ml Q15M PRN IV DECREASED GLUCOSE Last administered on 08/10/17 18:04; Admin Dose 25 ML; Start 08/09/17 at 10:30 Dextrose (D50w Syringe) 50 ml Q15M PRN IV DECREASED GLUCOSE; Start 08/09/17 at 10:30 Glucagon (Glucagen) 1 mg Q15M PRN IM DECREASED GLUCOSE; Start 08/09/17 at 10: 30 Glucose (Glutose) 15 gm Q15M PRN BUCCAL DECREASED GLUCOSE; Start 08/09/17 at 10:30 Hydromorphone HCl (Dilaudid) 0.4 mg Q15M PRN IV PAIN LEVEL 6-10 Last administered on 08/12/17 05:58; Admin Dose 0.4 MG; Start 08/10/17 at 14:30 Oxycodone/ Acetaminophen (Percocet (5/ 325)) 1 tab Q3H PRN PO PAIN LEVEL 1-5 Last administered on 08/13/17 04:31; Admin Dose 1 TAB; Start 08/10/17 at 14: 30 Oxycodone/ Acetaminophen (Percocet (5/ 325)) 2 tab Q3H PRN PO PAIN LEVEL 6-10; Start 08/10/17 at 14:30 Ondansetron HCl (Zofran Inj) 4 mg Q6H PRN IV NAUSEA AND/OR VOMITING; Start at 14:30 Famotidine (Pepcid) 20 mg BID PRN PO WHEN STARTING PO DIET; Start 08/10/17 at 21:00 Aspirin (Aspirin) 325 mg DAILY PO Last administered on 08/13/17 09:14; Admin Dose 325 MG; Start 08/11/17 at 09:00 Acetaminophen (Tylenol Tab) 650 mg Q3H PRN PO ELEVATED TEMPERATURE; Start at 14:30 Metoprolol Tartrate (Lopressor) 25 mg BID GTB Last administered on 08/13/17 09:14; Admin Dose 25 MG; Start 08/11/17 at 09:00 Atorvastatin Calcium (Lipitor) 40 mg HS NGT Last administered on 08/12/17 20: 33; Admin Dose 40 MG; Start 08/11/17 at 21:00 ROBERT MULLEN Aug 13, 2017 11:42
--- NOTE | 2017-08-13 12:31 | PDOCDIS ---
Discharge Instructions CONDITION Patient Condition: Stable HOME CARE INSTRUCTIONS: Special Diet: Carb controlled diet ACTIVITY: Activity Restrictions: Slowly Increase Activity FOLLOW UP/APPOINTMENTS Follow-up Plan Follow-up with primary care physician within 1 week of discharge from snf facility. Follow-up with cardiothoracic surgery, Dr. Castellanos, within 1-2 weeks. Referral and follow-up with cardiology, as outpatient within 1-2 weeks of discharge. ROBERT MULLEN Aug 13, 2017 12:31
[2017-08-14] MEDS ORDERED: INSULIN GLARGINE [LANtus] 3 ML PEN SC SCH (08:00)
== END 2017-08-13 20:06 | DRG 236 ==
LOC: TEL 22:26 → ICU 08-10 09:25 → TEL 08-12 23:45
PROVIDERS: ADMIT Internal Medicine; ATTEND Internal Medicine
PROC: 021109W Bypass Coronary Artery, Two Arteries from Aorta with Autologous Venous Tissue, Open Approach (ICD-10-PCS; 2017-08-10)
PROC: 06BP4ZZ Excision of Right Saphenous Vein, Percutaneous Endoscopic Approach (ICD-10-PCS; 2017-08-10)
PROC: 5A1221Z Performance of Cardiac Output, Continuous (ICD-10-PCS; 2017-08-10)
PROC: 0W9C30Z Drainage of Mediastinum with Drainage Device, Percutaneous Approach (ICD-10-PCS; 2017-08-10)
PROC: 0210099 Bypass Coronary Artery, One Artery from Left Internal Mammary with Autologous Venous Tissue, Open Approach (ICD-10-PCS; principal; 2017-08-10 07:30)
DX: I21.4 Non-ST elevation (NSTEMI) myocardial infarction (principal); E11.8 Type 2 diabetes mellitus with unspecified complications; I25.10 Atherosclerotic heart disease of native coronary artery without angina pectoris; F32.9 Major depressive disorder, single episode, unspecified; I10 Essential (primary) hypertension; E78.5 Hyperlipidemia, unspecified; E03.9 Hypothyroidism, unspecified; Z79.4 Long term (current) use of insulin; Z87.891 Personal history of nicotine dependence; R31.9 Hematuria, unspecified; R30.0 Dysuria
CPT/HCPCS: 36600; 71010; 80048; 80053; 80061; 81001; 82803; 82962; 83036; 83735; 84100; 84439; 84443; 85025; 85610; 85730; 86850; 86900; 86901; 86920; 87081; 90686; 93005; 93312; 93880; 94002; 97116; 97162; 97530; J0171; J0690; J1170; J1644; J1650; J1815; J2001; J2150; J2250; J2260; J2370; J2440; J2720; J3010; J3370; J3475; J3480; J7030; J7060; J7070; P9047